=== PATIENT | male | born 1955 | race Caucasian/White ===

== ENCOUNTER 2018-11-03 12:57 | Inpatient (IN) | payer MEDICARE ==
[~2018-11-03] VITALS: Ht 175.3 cm; Wt 99.9 kg
[2018-11-03] VITALS: BP 81/58
--- OUTSIDE RECORDS SUMMARY | 2018-11-03 12:59 | XMS REPORT | Continuity of Care Document ---
Author Author [facility] Interface Address Unknown Phone Unavailable Problems Problem Status Onset Date Classification Date Reported Comments Source B18.2 - CHRONIC VIRAL HEPATITIS C Active 07/21/2018 [facility] [place] [id number] Active 02/02/2015 [place] Chronic pain syndrome<sup>2</sup> Active 02/01/2015 Problem 09/11/2018 Data migrated from [facility] on 02/14/15. [facility] [place] Tobacco dependence syndrome<sup>5</sup> Active 02/01/2015 Problem 09/11/2018 Data migrated from [facility] on 02/14/15. [facility] [place] CHRONIC PAIN Active 11/18/2014 [place] UNK Active 02/16/2014 [facility] Allergy to environmental factors Active Problem 09/11/2018 [facility] [place],[facility] Asthma Active Problem 09/11/2018 [facility] [place],[facility] Chronic hepatitis<sup>1</sup> Resolved Problem 09/11/2018 unknown which one BRENDAD [place], [place],[facility] Cigarette smoker Active Problem 09/11/2018 [facility] [place],[facility] Heartburn Active Problem 09/11/2018 BR[facility]AD [place],[facility] Muscle weakness Resolved Problem 09/11/2018 [facility] [place],[facility], [facility] Pain<sup>3</sup> Active Problem 09/11/2018 chronic left leg [facility] [place] Poor peripheral circulation Resolved Problem 09/11/2018 [facility]AD [place],[facility], [place] SOB - Shortness of breath<sup>4</sup> Resolved Problem 09/11/2018 with asthma been long time sense had episode >1980. OP[facility]ika [place] Travel abroad<sup>6</sup> Resolved Problem 09/11/2018 denies travel outside the [place] or contact with anyone showing Ebola Sx [facility] [place] SOB - Shortness of breath<sup>2</sup> Resolved Problem 03/10/2014 2with asthma been long time sense had episode >1979. [facility] Pain<sup>2</sup> Active Problem 02/09/2015 chronic left leg [facility] SOB - Shortness of breath<sup>3</sup> Resolved Problem 02/09/2015 with asthma been long time sense had episode >1980. [facility] Travel abroad<sup>4</sup> Resolved Problem 02/09/2015 denies travel outside the [place] or contact with anyone showing Ebola Sx [facility] CHRONIC PAIN SYNDROME Active [facility] Medications Medication Details Route Status Patient Instructions Ordering Provider Order Date Source Lactated Ringers Injection IV 1,000 mL 1,000 mL, Rate: 70 ml/hr, Infuse over: 14.3 hr, Route: IV, Dosing Weight 95.455 kg, Total Volume: 1,000, Start date: 02/06/15 6:00:00, Duration: 12 hr, Stop date: 02/06/15 17:59:00 Inactive 02/06/2015 [facility] Lidocaine Hydrochloride 10 MG/ML Injectable Solution [Xylocaine] 0.1 mL, Route: INTRADERM, Drug form: INJ, PRE OP, Dosing Weight 95.455, kg, Start date: 02/06/15 6:00:00, Duration: 30 day, Stop date: 03/08/15 5:59:00Notes: Preservative free. (Same as: Xylocaine MPF) Inactive 02/06/2015 [facility] ceFAZolin 2 gm, 50 mL, Route: IVPB, Drug form: INJ, PRE OP, Start date: 02/06/15 6:00:00, Duration: 12 hr, Stop date: 02/06/15 17:59:00 Inactive 02/06/2015 [facility] Lactated Ringers IV 1,000 mL 1,000 mL, Rate: 100 ml/hr, Infuse over: 10 hr, Route: IV, Dosing Weight 95.455 kg, Total Volume: 1,000, Start date: 02/06/15 5:17:00, Duration: 30 day, Stop date: 03/08/15 5:16:00 Inactive 02/06/2015 [facility] 12 HR Oxycodone Hydrochloride 30 MG Extended Release Tablet [Oxycontin] 30 mg=1 tab, PO, Q12H Active 02/03/2015 [facility] Oxycodone Hydrochloride 5 MG Oral Tablet 5 mg, Route: PO, Drug form: TAB, ONCE, Dosing Weight 90.909, kg, PRN as needed for pain, Start date: 03/08/14 10:30:00 Inactive 03/08/2014 [facility] Meperidine 12.5 mg, Route: IVP, Q30Min, Dosing Weight 90.909, kg, PRN Other -See Comment, For shivering, Start date: 03/08/14 9:55:00, Duration: 2 doses or times, Stop date: Limited # of times Inactive 03/08/2014 [facility] Flumazenil 0.2 mg, Route: IVP, PRN, Dosing Weight 90.909, kg, PRN Benzodiazepine Reversal, Initial dose, Start date: 03/08/14 9:55:00, Duration: 30 day, Stop date: 04/07/14 9:54:00 Inactive 03/08/2014 [facility] Naloxone 0.04 mg, Route: IVP, Q2MIN, Dosing Weight 90.909, kg, PRN Narcotic Reversal, Start date: 03/08/14 9:55:00, Duration: 8 doses or times, Stop date: Limited # of times Inactive 03/08/2014 [facility] Acetaminophen 325 MG / Hydrocodone Bitartrate 5 MG Oral Tablet [[place] 5/325] 1 tab, Route: PO, Drug Form: TAB, Dosing Weight 90.909, kg, Q4H, PRN Pain, Start date: 03/08/14 9:55:00, Duration: 30 day, Stop date: 04/07/14 9:54:00 Inactive 03/08/2014 [facility] Ondansetron 4 mg, Route: IVP, ONCE, Dosing Weight 90.909, kg, PRN Nausea & Vomiting, Start date: 03/08/14 9:55:00 Inactive 03/08/2014 [facility] Fentanyl 25 microgram, Route: IVP, Q5Min, Dosing Weight 90.909, kg, PRN Pain Score 4-6, Start date: 03/08/14 9:55:00, Duration: 4 doses or times, Stop date: Limited # of times Inactive 03/08/2014 [facility] Hydromorphone 0.5 mg, Route: IVP, Q5Min, Dosing Weight 90.909, kg, PRN Pain Score 7-10, Start date: 03/08/14 9:55:00, Duration: 4 doses or times, Stop date: Limited # of times Inactive 03/08/2014 [facility] Acetaminophen 1,000 mg, Route: IVPB, Drug form: INJ, ONCE, Dosing Weight 90.909, kg, PRN Pain Score 1-3, Start date: 03/08/14 9:55:00, Duration: 1 doses or times, Stop date: Limited # of times Inactive 03/08/2014 [facility] Clindamycin 900 mg, Route: IVPB, ONCE, Dosing Weight 90.909, kg, Start date: 03/08/14 8:10:00, Stop date: 03/08/14 8:10:00 Inactive 03/08/2014 [facility] Clindamycin 900 mg, 6 mL, Route: IVPB, ONCE, Dosing Weight 90.909, kg, Start date: 03/08/14 7:48:00, Stop date: 03/08/14 7:48:00Notes: (Same As: Cleocin) Inactive 03/08/2014 [facility] Calcium Chloride 0.0014 MEQ/ML / Potassium Chloride 0.004 MEQ/ML / Sodium Chloride 0.103 MEQ/ML / Sodium Lactate 0.028 MEQ/ML Injectable Solution 1,000 mL, Rate: 25 ml/hr, Infuse over: 40 hr, Route: IV, Dosing Weight 90.909 kg, Total Volume: 1,000, Start date: 03/08/14 6:28:00, Duration: 30 day, Stop date: 04/07/14 6:27:00 Inactive 03/08/2014 [facility] Oxymetazoline hydrochloride 0.5 MG/ML Nasal [place] [Afrin] 2 spray, NASAL, BID, # 15 ml, 0 Refill(s) Active 03/01/2014 [facility] 12 HR cetirizine hydrochloride 5 MG / Pseudoephedrine Hydrochloride 120 MG Extended Release Tablet [Zyrtec-D] 1 tab, PO, BID, # 60 tab, 0 Refill(s) Active 03/01/2014 [facility] MSIR 30 mg oral tablet 30 mg=1 tab, PO, Q4H, Pain, 0 Refill(s) Active 03/01/2014 [facility] morphine 15 mg/mL injectable solution 30 mg=2 mL, IM, Q4H, Pain, 0 Refill(s) Active 03/01/2014 [facility] Fentanyl 750 mcg/1ml, 0 Refill(s) Active 03/01/2014 [facility] Carisoprodol 350 MG Oral Tablet [Soma] 350 mg=1 tab, PO, QID, # 30 tab, 0 Refill(s) Active 03/01/2014 [facility] Allergies, Adverse Reactions, Alerts Substance Category Reaction Severity Reaction type Status Date Reported Comments Source sulfa drugs<sup>1</sup> Assertion Drug allergy Active 02/01/2015 Data migrated from [facility] on 02/13/15. Originally documented as SULFA. [facility] penicillins Assertion Drug allergy Active [facility] sulfa drugs Assertion Drug allergy Active [facility] Immunizations Immunization Date Given Site Status Last Updated Comments Source Results Order Name Results Value Reference Range Date Interpretation Comments Source Abd Liver Protocol w/wo IV contrast CT Abd Liver Protocol w/wo IV contrast CT Please note that the first sentence within the Impression should read as the following: "Cirrhotic changes seen of the liver" Exam: CT Scan of the abdomen with and without contrast Reason for Exam: - R93.2 Abnormal findings on diagnostic imaging of liver and biliary tract Comparison Exam: Ultrasound 08/04/2018 Technique: Multiple axial images were obtained of the abdomen. 5 mm slices were acquired before and after injection of 100 cc Omnipaque 300 IV. Oral contrast was given. Reformatted sagittal and coronal images were obtained. Total exam LSJ=1024 mGy-cm. This exam was performed according to our departmental dose- optimization program, which includes automated exposure control, adjustment of the MA and/or KV according to patient size and/or use of iterative reconstruction technique. Discussion: Visualized portions of the lung bases are clear. Small amount of free fluid seen abutting the liver. The contour is nodular, suggestive of cirrhotic changes. There is heterogeneous enhancement seen throughout much of the right lobe of the liver. However, there is no discrete enhancing mass that can be seen as described on recent ultrasound exam. At this time, ultrasound-guided biopsy should be considered. There is a persistent hypodense filling defect seen within the proximal right and left main portal veins, suggestive of partially occlusive thrombi (6, 35 and 6, 38). Mild gallbladder wall thickening. No biliary duct dilation. Spleen is slightly enlarged. Pancreas, stomach, and adrenal glands are unremarkable. Cyst seen within the right kidney measuring 2.3 cm. 3 mm calcified stone seen within the right kidney. No hydronephrosis or hydroureter. No dilated loops of bowel. No appreciable lymphadenopathy. No acute bony abnormalities appreciated. No suspicious osteoblastic or osteolytic lesions. No evidence seen for abdominal aortic aneurysm or dissection. Impression: 1. Chronic changes seen of the liver. There is heterogeneous enhancement seen throughout much of the right lobe of the liver. However, there is no discrete enhancing mass that can be seen as described on recent ultrasound exam. At this time, ultrasound-guided biopsy should be considered. 2. There is a persistent hypodense filling defect seen within the proximal right and left main portal veins, suggestive of partially occlusive thrombi. 09/08/2018 - - Read by: Dav Trammell MD Dictated Date/time: 09/09/18 13:24 Electronically Signed by: Dav Trammell MD 09/09/18 13:27 FINAL REPORT - - Read by: Dav Trammell MD Dictated Date/time: 09/08/18 17:15 Electronically Signed by: Dav Trammell MD 09/08/18 17:45 FINAL REPORT ANTONIETTA [facility] Liver US Liver US EXAM: Liver US HISTORY: - B18.2 Chronic viral hepatitis C COMPARISON: None TECHNIQUE: Grayscale, color doppler and limited spectral doppler images were obtained of the right upper quadrant of the abdomen with attention to the liver. FINDINGS: The liver is cirrhotic measuring about 16.7 cm with heterogeneous echotexture and a focal 4 to 5 cm heterogeneous right hepatic mass. Several small vessels are present in the hepatic hilum possibly indicating cavernous transformation of the portal vein. The hepatic artery and the hepatic veins are patent. The common bile duct measures 7 mm. Gallstones noted without wall thickening. Sonographic [place] sign was negative. The pancreas is grossly sonographically normal although parts were not seen well. Small simple right renal cysts measure up to 2.8 cm. The visualized abdominal aorta and IVC are normal. IMPRESSION: Cirrhosis and 4 to 5 cm right hepatic mass. CT or MRI hepatic protocol is recommended for further evaluation. 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 Small gallstones. 08/04/2018 - - Read by: Azra Begum MD Dictated Date/time: 08/04/18 12:10 Electronically Signed by: Azra Begum MD 08/04/18 12:14 FINAL REPORT [facility] [place] URINE AND STOOL UA Bacteria Few /HPF None Seen /HPF 02/06/2015 [place] URINE AND STOOL UA RBC 0-2 /HPF 0 - 2 02/06/2015 [place] URINE AND STOOL UA Mucus None Seen (02/06/15 10:49 AM) None Seen 02/06/2015 [place] URINE AND STOOL UA WBC 0-2 /HPF None Seen /HPF 02/06/2015 [facility] URINE AND STOOL UA Sq Epi Occasional /LPF Few /LPF 02/06/2015 [facility] URINE AND STOOL Micro? Performed (02/06/15 10:49 AM) 02/06/2015 [facility] URINE AND STOOL UA pH 7.0 5.0 - 8.0 02/06/2015 [facility] URINE AND STOOL UA Protein Trace *ABN* (02/06/15 10:49 AM) Negative 02/06/2015 [facility] URINE AND STOOL UA Spec Grav 1.015 <=1.030 02/06/2015 [facility] URINE AND STOOL UA Turbidity Clear (02/06/15 10:49 AM) Clear 02/06/2015 [facility] URINE AND STOOL UA Color Yellow *NA* (02/06/15 10:49 AM) Yellow 02/06/2015 [facility] URINE AND STOOL UA Urobilinogen 0.2 EU/dL 0.1 - 1.0 02/06/2015 [facility] URINE AND STOOL UA Leuk Est Negative (02/06/15 10:49 AM) Negative 02/06/2015 [facility] URINE AND STOOL UA Nitrite Negative (02/06/15 10:49 AM) Negative 02/06/2015 [facility] URINE AND STOOL UA Glucose Negative (02/06/15 10:49 AM) Negative 02/06/2015 [facility] URINE AND STOOL UA Ketones Negative *NA* (02/06/15 10:49 AM) Negative 02/06/2015 [facility] URINE AND STOOL UA Bili Negative *NA* (02/06/15 10:49 AM) Negative 02/06/2015 [facility] URINE AND STOOL UA Blood Trace *ABN* (02/06/15 10:49 AM) Negative 02/06/2015 [facility] BLOOD BANK RESULTS Antibody Scrn Negative (02/06/15 7:49 AM) 02/06/2015 [facility] BLOOD BANK RESULTS ABO/Rh AB POS 02/06/2015 Result Comment: 02/06/2015 09:09 [id number] Notified Kriss Deluna RN of corrected ABO/Rh type. 02/06/2015 09:09 LS [facility] CHEM PANEL eGFR 98 mL/min/1.73m2 02/06/2015 Result Comment: The eGFR is calculated using the CKD-EPI formula. In most young, healthy individuals the eGFR will be >90 mL/min/1.73m2. The eGFR declines with age. An eGFR of 60-89 may be normal in some populations, particularly the elderly, for whom the CKD-EPI formula has not been extensively validated. Use of the eGFR is not recommended in the following populations: Individuals with unstable creatinine concentrations, including patients and those with serious co-morbid conditions. Patients with extremes in muscle mass or diet. The data above are obtained from the National Kidney Disease Education Program (NKDEP) which additionally recommends that when the eGFR is used in patients with extremes of body mass index for purposes of drug dosing, the eGFR should be multiplied by the estimated BMI. [facility] CHEM PANEL Chloride Lvl 102 meq/L 95 - 109 02/06/2015 [facility] CHEM PANEL CO2 25 meq/L 24 - 32 02/06/2015 [facility] CHEM PANEL Calcium Lvl 9.6 mg/dL 8.5 - 10.5 02/06/2015 [facility] CHEM PANEL Sodium Lvl 136 meq/L 135 - 145 02/06/2015 [facility] CHEM PANEL Potassium Lvl 3.5 meq/L 3.5 - 5.1 02/06/2015 [facility] CHEM PANEL Creatinine Lvl 0.8 mg/dL 0.5 - 1.4 02/06/2015 [facility] CHEM PANEL BUN 5 mg/dL 7 - 22 02/06/2015 [facility] CHEM PANEL Glucose Lvl 133 mg/dL 70 - 99 02/06/2015 [facility] CHEM PANEL AGAP 12.5 meq/L 10.0 - 20.0 02/06/2015 [facility] HEMATOLOGY Lymphocytes # 1.6 K/CMM 1.0 - 5.5 02/06/2015 [facility] HEMATOLOGY Monocytes # 0.6 K/CMM 0.0 - 0.8 02/06/2015 [facility] HEMATOLOGY Basophils # 0.1 K/CMM 0.0 - 0.2 02/06/2015 [facility] HEMATOLOGY Lymphocytes 20.9 % 20.0 - 40.0 02/06/2015 [facility] HEMATOLOGY Segs 70.5 % 45.0 - 75.0 02/06/2015 [facility] HEMATOLOGY Monocytes 7.6 % 2.0 - 12.0 02/06/2015 [facility] HEMATOLOGY Eosinophils 0.3 % 0.0 - 4.0 02/06/2015 [facility] HEMATOLOGY Basophils 0.7 % 0.0 - 1.0 02/06/2015 [facility] HEMATOLOGY Segs-Bands # 5.5 K/CMM 1.5 - 8.1 02/06/2015 [facility] HEMATOLOGY WBC 7.8 K/CMM 3.7 - 10.4 02/06/2015 [facility] HEMATOLOGY RBC 5.24 M/CMM 4.70 - 6.10 02/06/2015 [facility] Hgb 16.3 g/dL 14.0 - 18.0 02/06/2015 [facility] HEMATOLOGY Hct 47.6 % 42.0 - 54.0 02/06/2015 [facility] MCHC 34.2 g/dL 32.0 - 36.0 02/06/2015 [facility] MCH 31.0 pg 27.0 - 31.0 02/06/2015 [facility] HEMATOLOGY Platelet 255 K/CMM 133 - 450 02/06/2015 [facility] HEMATOLOGY RDW 13.2 % 11.5 - 14.5 02/06/2015 [facility] HEMATOLOGY MCV 90.8 fL 80.0 - 94.0 02/06/2015 [facility] MPV 8.1 fL 7.4 - 10.4 02/06/2015 [facility] HEMATOLOGY INR 0.96 0.85 - 1.17 02/06/2015 [facility] HEMATOLOGY PTT 29.2 s 22.9 - 35.8 02/06/2015 [facility] PT 12.8 s 12.0 - 14.7 02/06/2015 [facility] CHEM PANEL AST 98 unit/L 0 - 37 03/01/2014 [facility] CHEM PANEL ALT 104 unit/L 0 - 65 03/01/2014 [facility] CHEM PANEL Total Protein 8.2 g/dL 6.4 - 8.4 03/01/2014 [facility] CHEM PANEL Albumin Lvl 3.6 g/dL 3.5 - 5.0 03/01/2014 [facility] CHEM PANEL Bili Direct 0.2 mg/dL 0.0 - 0.3 03/01/2014 [facility] CHEM PANEL Alk Phos 70 unit/L 39 - 136 03/01/2014 [facility] CHEM PANEL Bili Total 0.4 mg/dL 0.2 - 1.3 03/01/2014 [facility] CHEM PANEL A/G Ratio 0.8 0.7 - 1.6 03/01/2014 [facility] CHEM PANEL Globulin 4.6 g/dL 2.0 - 4.0 03/01/2014 [facility] CHEM PANEL Bili Indirect 0.2 mg/dL 0.0 - 1.0 03/01/2014 [facility] ELECTROLYTES Sodium Lvl 136 meq/L 135 - 145 03/01/2014 [facility] ELECTROLYTES Creatinine Lvl 0.7 mg/dL 0.5 - 1.4 03/01/2014 [facility] ELECTROLYTES eGFR 104 mL/min/1.73m2 03/01/2014 1Result Comment: The eGFR is calculated using the CKD-EPI formula. In most young, healthy individuals the eGFR will be >90 mL/min/1.73m2. The eGFR declines with age. An eGFR of 60-89 may be normal in some populations, particularly the elderly, for whom the CKD-EPI formula has not been extensively validated. Use of the eGFR is not recommended in the following populations: Individuals with unstable creatinine concentrations, including patients and those with serious co-morbid conditions. Patients with extremes in muscle mass or diet. The data above are obtained from the National Kidney Disease Education Program (NKDEP) which additionally recommends that when the eGFR is used in patients with extremes of body mass index for purposes of drug dosing, the eGFR should be multiplied by the estimated BMI. [facility] ELECTROLYTES Potassium Lvl 4.2 meq/L 3.5 - 5.1 03/01/2014 [facility] ELECTROLYTES Chloride Lvl 102 meq/L 95 - 109 03/01/2014 [facility] ELECTROLYTES CO2 27 meq/L 24 - 32 03/01/2014 [facility] ELECTROLYTES Calcium Lvl 9.6 mg/dL 8.5 - 10.5 03/01/2014 [facility] ELECTROLYTES BUN 10 mg/dL 7 - 22 03/01/2014 [facility] ELECTROLYTES Glucose Lvl 109 mg/dL 70 - 99 03/01/2014 2Interpretive Data: Adult reference range values reflect the clinical guidelines of the [place] [employer]. [facility] ELECTROLYTES AGAP 11.2 meq/L 10.0 - 20.0 03/01/2014 [facility] HEMATOLOGY WBC 7.7 K/CMM 3.7 - 10.4 03/01/2014 [facility] HEMATOLOGY PT 11.9 s 12.0 - 14.7 03/01/2014 [facility] HEMATOLOGY INR 0.88 0.85 - 1.17 03/01/2014 3Interpretive Data: RECOMMENDED RANGES FOR PROTIME INR: 2.0-3.0 for most medical and surgical thromboembolic states. 2.5-3.5 for artificial heart valves and recurrent embolism. INR SHOULD BE USED ONLY FOR PATIENTS ON STABLE ANTICOAGULANT THERAPY. [facility] HEMATOLOGY PTT 26.4 s 22.9 - 35.8 03/01/2014 4Interpretive Data: Heparin Therapeutic Range: 57 - 92 Seconds [facility] HEMATOLOGY Platelet 220 K/CMM 133 - 450 03/01/2014 [facility] Vital Signs Vital Sign Value Date Comments Source Systolic (mm Hg) 142 02/06/2015 [facility] Diastolic (mm Hg) 83 02/06/2015 [facility] Respitory Rate 16 02/06/2015 [facility] Heart Rate 64 02/06/2015 [facility] Heart Rate 63 02/06/2015 [facility] Systolic (mm Hg) 120 02/06/2015 [facility] Diastolic (mm Hg) 74 02/06/2015 [facility] Respitory Rate 19 02/06/2015 [facility] Systolic (mm Hg) 120 02/06/2015 [facility] Diastolic (mm Hg) 74 02/06/2015 [facility] Respitory Rate 13 02/06/2015 [facility] Heart Rate 98 02/06/2015 [facility] Height 177.8 cm 02/03/2015 [facility] BMI Calculated 30.2 02/03/2015 [facility] Weight 95.455 02/03/2015 [facility] Diastolic (mm Hg) 76 03/08/2014 [facility] Systolic (mm Hg) 146 03/08/2014 [facility] Diastolic (mm Hg) 97 03/08/2014 [facility] Systolic (mm Hg) 145 03/08/2014 [facility] Diastolic (mm Hg) 81 03/08/2014 [facility] Systolic (mm Hg) 147 03/08/2014 [facility] Respitory Rate 17 03/08/2014 [facility] Respitory Rate 14 03/08/2014 [facility] Respitory Rate 15 03/08/2014 [facility] Temperature Oral (F) 98.6 F 03/01/2014 [facility] Heart Rate 76 03/01/2014 [facility] BMI Calculated 28.76 03/01/2014 [facility] Weight 90.909 03/01/2014 [facility] Height 177.8 cm 03/01/2014 [facility] Encounters Location Location Details Encounter Type Encounter Number Reason For Visit Attending Provider ADM Date DC Date Status Source [facility] OBS Day Surgery [id number] Esequiel Veronica 03/08/2014 03/08/2014 [facility] OBS Day Surgery [id number] Luis Schwartz Jr 02/06/2015 02/06/2015 [facility] Outpatient [id number] LUIS SCHWARTZ JR 04/04/2015 [facility] [id number] Olimpia Hazel 08/04/2018 08/05/2018 [facility] - [facility] [id number] Olga Nuno 09/08/2018 09/09/2018 [facility] [place] Procedures Procedure Code Date Perfomer Comments Source Arthroscopy of knee [id number] [facility] [place] Excision of lipoma [id number] [facility] Insertion of infusion pump [id number] [facility] Miscellaneous operations [id number] [facility] [place] ORIF - Open reduction and internal fixation of fracture [id number] [facility] ORIF - Open reduction and internal fixation of fracture<sup>1</sup> [id number] Enrique in place [facility] Arthroscopy of knee [id number] [facility] Excision of lipoma [id number] [facility] Insertion of infusion pump [id number] [facility] ORIF - Open reduction and internal fixation of fracture [id number] [facility] [facility] Arthroscopy of knee [id number] [facility] Excision of lipoma [id number] [facility] Insertion of infusion pump [id number] [facility] Miscellaneous operations [id number] [facility] ORIF - Open reduction and internal fixation of fracture<sup>1</sup> [id number] Enrique in place [facility] ORIF - Open reduction and internal fixation of fracture [id number] [facility]
--- OUTSIDE RECORDS SUMMARY | 2018-11-03 12:59 | XMS REPORT | Summary of Care ---
Author Author [facility] [place] Organization [facility] Out[facility] Address Unknown Phone Unavailable Encounter MAYRA Chery(FIN) [id number] Date(s): 09/08/18 - 09/08/18 [facility] [address] [place] [address] 7 [phone] Discharge Disposition: Home or Self Care Attending Physician: Olga Nuno MD Referring Physician: Olga Nuno MD Vital Signs No data available for this section Problem List Condition Effective Dates Status Health Status Informant Allergy to Active environmental factors(Confirmed) Asthma(Confirmed) Active Chronic Resolved hepatitis(Confirmed) 1 Chronic pain 02/01/15 Active syndrome2 Cigarette Active smoker(Confirmed) Heartburn(Confirmed) Active Muscle Resolved weakness(Confirmed) Pain(Confirmed)3 Active Poor peripheral Resolved circulation(Confirme d) SOB - Shortness of Resolved breath(Confirmed)4 Tobacco dependence 02/01/15 Active syndrome5 Travel Resolved abroad(Confirmed)6 1unknown which one 2Data migrated from Viyet on 02/14/15. 3chronic left leg 4with asthma been long time sense had episode >1979. 5Data migrated from [employer] on 02/14/15. 6denies travel outside the [place] or contact with anyone showing Ebola Sx Allergies, Adverse Reactions, Alerts Substance Reaction Severity Status sulfa drugs1 Active 1Data migrated from [employer] on 02/13/15. Originally documented as SULFA. Medications No data available for this section Results No data available for this section Immunizations No data available for this section Procedures Procedure Date Related Diagnosis Body Site Status Arthroscopy of knee Completed Arthroscopy of knee Completed Excision of lipoma Completed Insertion of infusion pump Completed Miscellaneous operations Completed Miscellaneous operations Completed ORIF - Open reduction and internal fixation Completed of fracture ORIF - Open reduction and internal fixation Completed of fracture1 1Rod in place Social History Social History Type Response Substance Abuse Use: Past. Type: Marijuana. Recreational Drug Route: Inhaled.1 Exercise Exercise duration: 0. Alcohol Past, Previous treatment: None. Smoking Status Current every day smoker; Type: Cigarettes; Lives with someone who smokes; Cigarette Smoking Last 365 Days No; Reg Smoking Cessation Counseling No; Tobacco use per day: 35; Number of years: 39; entered on: 02/06/15 1years ago- Assessment and Plan No data available for this section
--- OUTSIDE RECORDS SUMMARY | 2018-11-03 12:59 | XMS REPORT | Summary of Care ---
Author Author [facility] [place] Organization [facility] [place] Address Unknown Phone Unavailable Encounter MAYRA Chery(FIN) [id number] Date(s): 08/04/18 - 08/04/18 [facility] Outpatient Imaging [facility] [address] [place] [phone] Discharge Disposition: Home or Self Care Attending Physician: Olga Nuno MD Referring Physician: Olimpia Hazel Vital Signs No data available for this [...] abroad(Confirmed)6 1unknown which one 2Data migrated from [email or web address] on 02/14/15. 3chronic left leg 4with asthma been long time sense had episode >1979. 5Data migrated from [employer] on 02/14/15. 6denies travel outside the [place] or contact with anyone showing Ebola Sx Allergies, Adverse Reactions, Alerts Substance Reaction Severity Status sulfa drugs1 Active 1Data migrated from [employer] on 02/13/15. Originally documented as SULFA. Medications [...]
--- OUTSIDE RECORDS SUMMARY | 2018-11-03 13:00 | XMS REPORT | Summary of Care ---
Author Organization Unknown Address Unknown Phone Unavailable Encounter HQ Miri(OSMAR) [id number] Date(s): 03/08/14 - 03/08/14 [facility] [address] [place] [address] - [facility] Discharge Disposition: Home Physician Attending: Esequiel Martin MD Physician_Referring: Esequiel Martin MD Reason for Visit UNK Vital Signs 1 2 3 Most recent to oldest [Reference Range]: 177.8 cm (03/01/14 2:15 PM) Height 98.6 DegF (03/01/14 2:15 PM) Temperature Oral [96.4-99.1 DegF] 146 mmHg *HI* (03/08/14 11:15 AM) 145 mmHg *HI* (03/08/14 11:00 AM) 147 mmHg *HI* (03/08/14 10:45 AM) Systolic Blood Pressure [90-140 mmHg] 76 mmHg (03/08/14 11:15 AM) 97 mmHg *HI* (03/08/14 11:00 AM) 81 mmHg (03/08/14 10:45 AM) Diastolic Blood Pressure [60-90 mmHg] 17 BRMIN (03/08/14 10:30 AM) 14 BRMIN (03/08/14 10:15 AM) 15 BRMIN (03/08/14 10:08 AM) Respiratory Rate [14-20 BRMIN] 76 bpm (03/01/14 2:15 PM) Peripheral Pulse Rate [60-100 bpm] 90.909 kg (03/01/14 2:15 PM) Weight 28.76 m2 (03/01/14 2:15 PM) Body Mass Index Problem List Condition Effective Dates Status Health Status Informant Asthma(Confirmed) Active Chronic Resolved hepatitis(Confirmed) 1 Cigarette Active smoker(Confirmed) Heartburn(Confirmed) Active Muscle Resolved weakness(Confirmed) Poor peripheral Resolved circulation(Confirme d) SOB - Shortness of Resolved breath(Confirmed)2 1unknown which one 2with asthma been long time sense had episode >1979. Allergies, Adverse Reactions, Alerts Substance Reaction Severity Status penicillins Active Medications acetaminophen 1,000 mg, Route: IVPB, Drug form: INJ, ONCE, Dosing Weight 90.909, kg, PRN Pain Score 1-3, Start date: 03/08/14 9:55:00, Duration: 1 doses or times, Stop date: Limited # of times Start Date: 03/08/14 Stop Date: 03/08/14 Status: Discontinued Afrin 0.05% nasal spray 2 spray, NASAL, BID, # 15 ml, 0 Refill(s) Start Date: 03/01/14 Status: Ordered clindamycin 900 mg, Route: IVPB, ONCE, Dosing Weight 90.909, kg, Start date: 03/08/14 8:10:0 0, Stop date: 03/08/14 8:10:00 Start Date: 03/08/14 Stop Date: 03/08/14 Status: Completed clindamycin + Sodium Chloride 0.9% IV 100 mL 900 mg, 6 mL, Route: IVPB, ONCE, Dosing Weight 90.909, kg, Start date: 03/08/14 7:48:00, Stop date: 03/08/14 7:48:00 Notes: (Same As: Cleocin) Start Date: 03/08/14 Stop Date: 03/08/14 Status: Ordered fentaNYL 25 microgram, Route: IVP, Q5Min, Dosing Weight 90.909, kg, PRN Pain Score 4-6, S tart date: 03/08/14 9:55:00, Duration: 4 doses or times, Stop date: Limited # of times Start Date: 03/08/14 Stop Date: 03/08/14 Status: Discontinued fentaNYL 750 mcg/1ml, 0 Refill(s) Start Date: 03/01/14 Status: Ordered flumazenil 0.2 mg, Route: IVP, PRN, Dosing Weight 90.909, kg, PRN Benzodiazepine Reversal, Initial dose, Start date: 03/08/14 9:55:00, Duration: 30 day, Stop date: 4 9:54:00 Start Date: 03/08/14 Stop Date: 03/08/14 Status: Discontinued hydromorphone 0.5 mg, Route: IVP, Q5Min, Dosing Weight 90.909, kg, PRN Pain Score 7-10, Start date: 03/08/14 9:55:00, Duration: 4 doses or times, Stop date: Limited # of time s Start Date: 03/08/14 Stop Date: 03/08/14 Status: Discontinued Lactated Ringers Injection IV 1,000 mL 1,000 mL, Rate: 25 ml/hr, Infuse over: 40 hr, Route: IV, Dosing Weight 90.909 kg , Total Volume: 1,000, Start date: 03/08/14 6:28:00, Duration: 30 day, Stop date : 04/07/14 6:27:00 Start Date: 03/08/14 Stop Date: 03/08/14 Status: Discontinued meperidine 12.5 mg, Route: IVP, Q30Min, Dosing Weight 90.909, kg, PRN Other -See Comment, F or shivering, Start date: 03/08/14 9:55:00, Duration: 2 doses or times, Stop mauricio e: Limited # of times Start Date: 03/08/14 Stop Date: 03/08/14 Status: Discontinued morphine 15 mg/mL injectable solution 30 mg=2 mL, IM, Q4H, Pain, 0 Refill(s) Start Date: 03/01/14 Status: Ordered MSIR 30 mg oral tablet 30 mg=1 tab, PO, Q4H, Pain, 0 Refill(s) Start Date: 03/01/14 Status: Ordered naloxone 0.04 mg, Route: IVP, Q2MIN, Dosing Weight 90.909, kg, PRN Narcotic Reversal, Sta rt date: 03/08/14 9:55:00, Duration: 8 doses or times, Stop date: Limited # of t imes Start Date: 03/08/14 Stop Date: 03/08/14 Status: Discontinued [place] 5/325 oral tablet 1 tab, Route: PO, Drug Form: TAB, Dosing Weight 90.909, kg, Q4H, PRN Pain, Start date: 03/08/14 9:55:00, Duration: 30 day, Stop date: 04/07/14 9:54:00 Start Date: 03/08/14 Stop Date: 03/08/14 Status: Discontinued ondansetron 4 mg, Route: IVP, ONCE, Dosing Weight 90.909, kg, PRN Nausea & Vomiting, Start date: 03/08/14 9:55:00 Start Date: 03/08/14 Stop Date: 03/08/14 Status: Discontinued oxyCODONE 5 mg immediate release 5 mg, Route: PO, Drug form: TAB, ONCE, Dosing Weight 90.909, kg, PRN as needed f or pain, Start date: 03/08/14 10:30:00 Start Date: 03/08/14 Stop Date: 03/08/14 Status: Completed Soma 350 mg oral tablet 350 mg=1 tab, PO, QID, # 30 tab, 0 Refill(s) Start Date: 03/01/14 Stop Date: 03/11/14 Status: Ordered ZyrTEC-D oral tablet, extended release 1 tab, PO, BID, # 60 tab, 0 Refill(s) Start Date: 03/01/14 Status: Ordered Results ELECTROLYTES Most recent to 1 oldest [Reference Range]: Sodium Lvl [135-145 136 mEq/L mEq/L] (03/01/14 2:30 PM) Potassium Lvl 4.2 mEq/L [3.5-5.1 mEq/L] (03/01/14 2:30 PM) Chloride Lvl [95-109 102 mEq/L mEq/L] (03/01/14 2:30 PM) CO2 [24-32 mEq/L] 27 mEq/L (03/01/14 2:30 PM) AGAP [10.0-20.0 11.2 mEq/L mEq/L] (03/01/14 2:30 PM) CHEM PANEL Most recent to 1 oldest [Reference Range]: Creatinine Lvl 0.7 mg/dL [0.5-1.4 mg/dL] (03/01/14 2:30 PM) eGFR 104 mL/min/1.73m2 1 *NA* (03/01/14 2:30 PM) BUN [7-22 mg/dL] 10 mg/dL (03/01/14 2:30 PM) Glucose Lvl [70-99 109 mg/dL 2 mg/dL] *HI* (03/01/14 2:30 PM) Total Protein 8.2 g/dL [6.4-8.4 g/dL] (03/01/14 2:30 PM) Albumin Lvl [3.5-5.0 3.6 g/dL g/dL] (03/01/14 2:30 PM) Globulin [2.0-4.0 4.6 g/dL g/dL] *HI* (03/01/14 2:30 PM) A/G Ratio [0.7-1.6] 0.8 (03/01/14 2:30 PM) Calcium Lvl 9.6 mg/dL [8.5-10.5 mg/dL] (03/01/14 2:30 PM) ALT [0-65 unit/L] 104 unit/L *HI* (03/01/14 2:30 PM) AST [0-37 unit/L] 98 unit/L *HI* (03/01/14 2:30 PM) Alk Phos [39-136 70 unit/L unit/L] (03/01/14 2:30 PM) Bili Total [0.2-1.3 0.4 mg/dL mg/dL] (03/01/14 2:30 PM) Bili Direct [0.0-0.3 0.2 mg/dL mg/dL] (03/01/14 2:30 PM) Bili Indirect 0.2 mg/dL [0.0-1.0 mg/dL] (03/01/14 2:30 PM) 1Result Comment: The eGFR is calculated using [...] from the National Kidney Disease Education Program ( NKDEP) which additionally recommends that when the eGFR is used in patients with extremes of body mass index for purposes of drug dosing, the eGFR should be mul tiplied by the estimated BMI. 2Interpretive Data: Adult reference range values reflect the clinical guidelines of the [place] [employer]. HEMATOLOGY Most recent to 1 oldest [Reference Range]: WBC [3.7-10.4 K/CMM] 7.7 K/CMM (03/01/14 2:30 PM) Platelet [133-450 220 K/CMM K/CMM] (03/01/14 2:30 PM) PT [12.0-14.7 11.9 seconds seconds] *LOW* (03/01/14 2:30 PM) INR [0.85-1.17] 0.88 3 (03/01/14 2:30 PM) PTT [22.9-35.8 26.4 seconds 4 seconds] (03/01/14 2:30 PM) 3Interpretive Data: RECOMMENDED RANGES FOR PROTIME INR: 2.0-3.0 for most medical and surgical thromboembolic states. 2.5-3.5 for artificial heart valves and recurrent embolism. INR SHOULD BE USED ONLY FOR PATIENTS ON STABLE ANTICOAGULANT THERAPY. 4Interpretive Data: Heparin Therapeutic Range: 57 - 92 Seconds Medications Administered During Your Visit No data available for this section Immunizations No data available for this section Procedures Procedure Type Body Site Date of Procedure Related Diagnosis Arthroscopy of knee Excision of lipoma Insertion of infusion pump ORIF - Open reduction and internal fixation of fracture ORIF - Open reduction and internal fixation of fracture Social History Social History Type Response Alcohol Previous treatment: None Smoking Status Current every day smoker, Exposure to Tobacco Smoke None, Cigarette Smoking Last 365 Days No, Reg Smoking Cessation Counseling No Assessment and Plan Extracted from: Title: Intrathecal pump replacement Author: Esequiel Martin MD Date: 03/08/14 and catheter revision OP note - IT pump revision The procedure was performed at [facility] , The H&P, done within the past 30 days, was reviewed with patient prior to the procedure and patient denies significant changes. PATIENT NAME: Lorenzo Gupta DATE OF : 55 REFERRAL SOURCE: Outside physician DATE OF PROCEDURE: 03/08/14 SURGEON: Esequiel Martin M.D. PRE-PROCEDURE DIAGNOSIS: Intrathecal pump end of battery life POST-PROCEDURE DIAGNOSIS: Intrathecal pump end of battery life PROCEDURES: IMPLTJ REVJ/RPSG ITHCL/EDRL CATH MANAGER EMERGENCY W/O BARAJAS : 80094 IMPLTJ/RPLCMT ITHCL/EDRL DRUG NFS PRGRBL PUMP : 35352 Fluoroscopic guidance for the above procedure [id number] ANESTHESIA: general anesthesia ESTIMATED BLOOD LOSS: Minimal IV FLUIDS: Per anesthetic/nursing record COMPLICATIONS: None PROCEDURE IN DETAIL: The patient was identified in the procedure room. Risks, benefits, and alternatives were discussed, all questions were answered, and the patient desired to proceed. Consent was noted in the chart and a time out was performed. Then the patient was made comfortable in the supine position on the procedure table. Pressure points were checked and padded awake. Vital signs were stable.Anesthesia was provided as indicated above. An antiseptic solution was used over the area followed by sterile draping. Fluoroscopy was used to survey the thoracolumbar spine. The planned incision sites were injected with bupivacaine 0.25% with epinephrine. Then an incision was made over the pump pocket on the left flank with a 10 blade. Hemostasis was achieved using a [place]. The pump and catheter were dissected out from the pocket.The catheter was then disconnected from the pump and pulled through to the midline incision.At this point, there were crystalline structures noted around the pump pocket. On dissection, the pump was noted to be disconnected from the cather. Some CSF were aspirated with a 25 guage needle but appears to be slow. The catheter needed to be revised, removing approxiamtely 2 cm, to the appropriate length and was connected to the Medtronic Synchromed II pump using a sutureless connector. The pocket and back incision were then irrigated with a Bacitracin solution and then closed with 2-0 Vicryl interrupted stitches and then a 3-0 Monocryl continuous subcuticular stitch for the skin. Dermabond was used over the incisions and covered by sterile gauze and tape after dry. The patient was transferred to a stretcher and taken to the recovery area in stable condition. The patient tolerated the procedure well, suffered no apparent adverse events, and was discharged to the care of a responsible adult when criteria met. Patient and family member were instructed to monitor signs of sedation or respiratory difficulties over the course of next three days. He verbalized understanding of the care plan.
--- OUTSIDE RECORDS SUMMARY | 2018-11-03 13:00 | XMS REPORT | Summary of Care ---
Author Author [facility] Organization [facility] Address Unknown Phone Unavailable Encounter MAYRA Chery(OSMAR) [id number] Date(s): 02/06/15 - 02/06/15 [facility] [address] [place] [address]- Discharge Disposition: Home Attending Physician: Luis Martinez MD Vital Signs 1 2 3 Most recent to oldest [Reference Range]: 177.8 cm (02/03/15 5:48 PM) Height 1 2 3 Most recent to oldest [Reference Range]: 142/83 mmHg *HI* (02/06/15 2:50 PM) 120/74 mmHg (02/06/15 2:05 PM) 120/74 mmHg (02/06/15 1:50 PM) Blood Pressure [90-140/60-90 mmHg] 1 2 3 Most recent to oldest [Reference Range]: 16 BRMIN (02/06/15 2:50 PM) 19 BRMIN (02/06/15 2:05 PM) 13 BRMIN *LOW* (02/06/15 1:50 PM) Respiratory Rate [14-20 BRMIN] 1 2 3 Most recent to oldest [Reference Range]: 64 bpm (02/06/15 2:50 PM) 63 bpm (02/06/15 2:05 PM) 98 bpm (02/06/15 7:33 AM) Peripheral Pulse Rate [60-100 bpm] 1 2 3 Most recent to oldest [Reference Range]: 95.455 kg (02/03/15 5:48 PM) Weight 1 2 3 Most recent to oldest [Reference Range]: 30.2 m2 (02/03/15 5:48 PM) Body Mass Index Problem List Condition Effective Dates Status Health Status Informant Allergy to Active environmental factors(Confirmed) Asthma(Confirmed) Active Chronic Resolved hepatitis(Confirmed) 1 Cigarette Active smoker(Confirmed) Heartburn(Confirmed) Active Muscle Resolved weakness(Confirmed) Pain(Confirmed)2 Active Poor peripheral Resolved circulation(Confirme d) SOB - Shortness of Resolved breath(Confirmed)3 Travel Resolved abroad(Confirmed)4 1unknown which one 2chronic left leg 3with asthma been long time sense had episode >1979. 4denies travel outside the [place] or contact with anyone showing Ebola Sx Allergies, Adverse Reactions, Alerts Substance Reaction Severity Status sulfa drugs Active Medications ceFAZolin 2 gm, 50 mL, Route: IVPB, Drug form: INJ, PRE OP, Start date: 02/06/15 6:00:00, Duration: 12 hr, Stop date: 02/06/15 17:59:00 Start Date: 02/06/15 Stop Date: 02/06/15 Status: Completed Lactated Ringers Injection IV 1,000 mL 1,000 mL, Rate: 70 ml/hr, Infuse over: 14.3 hr, Route: IV, Dosing Weight 95.455 kg, Total Volume: 1,000, Start date: 02/06/15 6:00:00, Duration: 12 hr, Stop mauricio e: 02/06/15 17:59:00 Start Date: 02/06/15 Stop Date: 02/06/15 Status: Completed Lactated Ringers IV 1,000 mL 1,000 mL, Rate: 100 ml/hr, Infuse over: 10 hr, Route: IV, Dosing Weight 95.455 k g, Total Volume: 1,000, Start date: 02/06/15 5:17:00, Duration: 30 day, Stop mauricio e: 03/08/15 5:16:00 Start Date: 02/06/15 Stop Date: 02/06/15 Status: Discontinued oxyCONTIN 30 mg oral tablet, extended release 30 mg=1 tab, PO, Q12H Start Date: 02/03/15 Status: Ordered Xylocaine-MPF 1% preservative-free injectable solution 0.1 mL, Route: INTRADERM, Drug form: INJ, PRE OP, Dosing Weight 95.455, kg, Star t date: 02/06/15 6:00:00, Duration: 30 day, Stop date: 03/08/15 5:59:00 Notes: Preservative free. (Same as: Xylocaine MPF) Start Date: 02/06/15 Stop Date: 02/06/15 Status: Discontinued Results BLOOD BANK RESULTS Most recent to 1 oldest [Reference Range]: ABO/Rh AB POS 1 *Unknown* (02/06/15 7:49 AM) Antibody Scrn Negative (02/06/15 7:49 AM) 1Result Comment: 02/06/2015 09:09 [id number] Notified Kriss Deluna RN of corrected ABO/Rh type. 02/06/2015 09:09 LS ELECTROLYTES Most recent to 1 oldest [Reference Range]: Sodium Lvl [135-145 136 mEq/L mEq/L] (02/06/15 7:49 AM) Potassium Lvl 3.5 mEq/L [3.5-5.1 mEq/L] (02/06/15 7:49 AM) Chloride Lvl [95-109 102 mEq/L mEq/L] (02/06/15 7:49 AM) CO2 [24-32 mEq/L] 25 mEq/L (02/06/15 7:49 AM) AGAP [10.0-20.0 12.5 mEq/L mEq/L] (02/06/15 7:49 AM) CHEM PANEL Most recent to 1 oldest [Reference Range]: Creatinine Lvl 0.8 mg/dL [0.5-1.4 mg/dL] (02/06/15 7:49 AM) eGFR 98 mL/min/1.73m2 2 *NA* (02/06/15 7:49 AM) BUN [7-22 mg/dL] 5 mg/dL *LOW* (02/06/15 7:49 AM) Glucose Lvl [70-99 133 mg/dL mg/dL] *HI* (02/06/15 7:49 AM) Calcium Lvl 9.6 mg/dL [8.5-10.5 mg/dL] (02/06/15 7:49 AM) 2Result Comment: The eGFR is calculated using the [...] be mul tiplied by the estimated BMI. URINE AND STOOL Most recent to 1 oldest [Reference Range]: UA Turbidity [Clear] Clear (02/06/15 10:49 AM) UA Color [Yellow] Yellow *NA* (02/06/15 10:49 AM) UA pH [5.0-8.0] 7.0 (02/06/15 10:49 AM) UA Spec Grav 1.015 [<=1.030] (02/06/15 10:49 AM) UA Glucose Negative [Negative] (02/06/15 10:49 AM) UA Blood [Negative] Trace *ABN* (02/06/15 10:49 AM) UA Ketones Negative [Negative] *NA* (02/06/15 10:49 AM) UA Protein Trace [Negative] *ABN* (02/06/15 10:49 AM) UA Urobilinogen 0.2 EU/dL [0.1-1.0 EU/dL] (02/06/15 10:49 AM) UA Bili [Negative] Negative *NA* (02/06/15 10:49 AM) UA Leuk Est Negative [Negative] (02/06/15 10:49 AM) UA Nitrite Negative [Negative] (02/06/15 10:49 AM) UA WBC [None Seen 0-2 /HPF /HPF] (02/06/15 10:49 AM) UA RBC [0-2 /HPF] 0-2 /HPF (02/06/15 10:49 AM) UA Bacteria [None Few /HPF Seen /HPF] (02/06/15 10:49 AM) UA Sq Epi [Few /LPF] Occasional /LPF (02/06/15 10:49 AM) UA Mucus [None Seen] None Seen (02/06/15 10:49 AM) Micro? Performed (02/06/15 10:49 AM) HEMATOLOGY Most recent to 1 oldest [Reference Range]: WBC [3.7-10.4 K/CMM] 7.8 K/CMM (02/06/15 7:49 AM) RBC [4.70-6.10 5.24 M/CMM M/CMM] (02/06/15 7:49 AM) Hgb [14.0-18.0 g/dL] 16.3 g/dL (02/06/15 7:49 AM) Hct [42.0-54.0 %] 47.6 % (02/06/15 7:49 AM) MCV [80.0-94.0 fL] 90.8 fL (02/06/15 7:49 AM) MCH [27.0-31.0 pg] 31.0 pg (02/06/15 7:49 AM) MCHC [32.0-36.0 34.2 g/dL g/dL] (02/06/15 7:49 AM) RDW [11.5-14.5 %] 13.2 % (02/06/15 7:49 AM) Platelet [133-450 255 K/CMM K/CMM] (02/06/15 7:49 AM) MPV [7.4-10.4 fL] 8.1 fL (02/06/15 7:49 AM) Segs [45.0-75.0 %] 70.5 % (02/06/15 7:49 AM) Lymphocytes 20.9 % [20.0-40.0 %] (02/06/15 7:49 AM) Monocytes [2.0-12.0 7.6 % %] (02/06/15 7:49 AM) Eosinophils [0.0-4.0 0.3 % %] (02/06/15 7:49 AM) Basophils [0.0-1.0 0.7 % %] (02/06/15 7:49 AM) Segs-Bands # 5.5 K/CMM [1.5-8.1 K/CMM] (02/06/15 7:49 AM) Lymphocytes # 1.6 K/CMM [1.0-5.5 K/CMM] (02/06/15 7:49 AM) Monocytes # [0.0-0.8 0.6 K/CMM K/CMM] (8/17/15 7:49 AM) Basophils # [0.0-0.2 0.1 K/CMM K/CMM] (02/06/15 7:49 AM) PT [12.0-14.7 12.8 seconds seconds] (02/06/15 7:49 AM) INR [0.85-1.17] 0.96 (02/06/15 7:49 AM) PTT [22.9-35.8 29.2 seconds seconds] (02/06/15 7:49 AM) Immunizations No data available for this section Procedures Procedure Date Related Diagnosis Body Site Arthroscopy of knee Arthroscopy of knee Excision of lipoma Insertion of infusion pump Miscellaneous operations Miscellaneous operations ORIF - Open reduction and internal fixation of fracture1 ORIF - Open reduction and internal fixation of fracture 1Rod in place Social History Social History Type Response Substance Abuse Use: Past. Type: Marijuana. Recreational Drug Route: Inhaled.1 Exercise Exercise duration: 0. Alcohol Past, Previous treatment: None. Smoking Status Current every day smoker; Type: Cigarettes; Tobacco use per day: 35; Number of years: 39; Lives with someone who smokes; Cigarette Smoking Last 365 Days No; Reg Smoking Cessation Counseling No 1years ago- Assessment and Plan No data available for this section
--- OUTSIDE RECORDS SUMMARY | 2018-11-03 13:00 | XMS REPORT ---
Author [facility] Address Unknown Phone Unavailable Care Team Providers Care Rheumatology Specialist Name Role Phone Unavailable Unavailable Payers Payer Name Policy Type Policy Number Effective Date Expiration Date Problems This patient has no known problems. Allergies, Adverse Reactions, Alerts Allergy Name Allergy Type Status Severity Reaction(s) Onset Date Inactive Date Treating Clinician Comments No Known Allergies DA Active U 2018-07-03 00:00:00 No Known Allergies DA Active U 2017-04-30 00:00:00 Medications This patient has no known medications.
[2018-11-03] MEDS ORDERED: IPRATROPIUM BROMIDE 0.02% 2.5 ML NEB NEB ONE (14:30)
[2018-11-03] MEDS ORDERED: LEVALBUTEROL HCL SOLN NEBU 0.63 MG/3 ML NEB INH ONE (14:30)
[2018-11-03 14:54] LABS: BASOPHILS # (AUTO) 0.1 (0.0-0.1); EOSINOPHILS # (AUTO) 0.1 (0.0-0.4); EOSINOPHILS % 1.4 % (0.0-6.0); HEMATOCRIT 30.6 % (38.2-49.6); LYMPHOCYTES # (AUTO) 2.2 (1.0-3.2); LYMPHOCYTES % 21.8 % (18.0-39.1); MEAN CORPUSCULAR HEMOGLOBIN 29.4 pg (28-32); MEAN CORPUSCULAR HGB CONC 35.9 g/dL (31-35); MEAN CORPUSCULAR VOLUME 81.8 fL (81-99); MONOCYTES # (AUTO) 1.1 (0.2-0.8); MONOCYTES % 10.9 % (4.4-11.3); NEUTROPHILS # (AUTO) 6.5 (2.1-6.9); NEUTROPHILS % 62.7 % (38.7-80.0); PLATELET COUNT 638 x10e3/uL (140-360); RED BLOOD COUNT 3.74 x10e6/uL (4.3-5.7); RED CELL DISTRIBUTION WIDTH 20.7 % (11.7-14.4)
[2018-11-03 15:19] LABS: ALBUMIN 1.7 g/dL (3.5-5.0); ALBUMIN/GLOBULIN RATIO 0.3 (0.8-2.0); ANION GAP 13.2 mmol/L (8-16); CALCIUM 8.2 mg/dL (8.4-10.2); CREATININE, SERUM 1.61 mg/dL (0.72-1.25)
[2018-11-03 15:20] LABS: POTASSIUM 5.2 mmol/L (3.5-5.1)
[2018-11-03 15:25] LABS: CREATINE KINASE MB 1.8 ng/mL (0-5.0)
[2018-11-03 15:26] LABS: INR 1.13
[2018-11-03 15:27] LABS: PARTIAL THROMBOPLASTIN TIME 34.1 seconds (23.8-35.5)
[2018-11-03 15:45] LABS: CLARITY,URINE SL CLOUDY (CLEAR); COLOR,URINE YELLOW (YELLOW); KETONES,URINE NEGATIVE (NEGATIVE); LEUKOCYTE ESTERASE ,URINE TRACE (NEGATIVE); NITRITE,URINE NEGATIVE (NEGATIVE); PROTEIN,URINE DIPSTICK NEGATIVE (NEGATIVE); URINE UROBILINOGEN 1 mg/dL (0.2 - 1)
[2018-11-03 15:46] LABS: BILIRUBIN,URINE 1+ (NEGATIVE)
[2018-11-03 15:55] LABS: BACTERIA,URINE FEW /HPF; WBC,URINE (MAN) 0-5 /HPF (0-5)
--- NOTE | 2018-11-03 16:42 | Diagnostic Imaging Report ---
Examination: Single AP view of the chest. COMPARISON: None. INDICATION: Chest pain DISCUSSION: Lungs are well-inflated. Linear opacity in the left lung base compatible with subsegmental atelectasis. No airspace consolidation, pleural effusion, or pneumothorax. Normal cardiomediastinal contour for technique. No acute osseous abnormality. IMPRESSION: Subsegmental atelectasis in the left lung base. Otherwise no acute cardiopulmonary abnormality. Signed by: Dr. Edward Jones M.D. on 11/03/2018 4:39 PM
[2018-11-03] MEDS ORDERED: ENALAPRIL MALEA20 MG PO (16:48)
[2018-11-03] MEDS ORDERED: MORPHINE-NS2 MG/1 ML SQ (16:48)
[2018-11-03] MEDS ORDERED: ATENOLOL100 MG PO (16:48)
[2018-11-03] MEDS ORDERED: SODIUM CHLORIDE 0.9% 500ML 500 ML ONE (16:57)
--- NOTE | 2018-11-03 16:58 | NUR ---
informed er of pt blood pressure, received v/o for NS 500ml bolus to start now.
[2018-11-03] MEDS ORDERED: SODIUM CHLORIDE 0.9% 500ML 500 ML IV ONE (17:00)
[2018-11-03] MEDS: PIPER-TAZ 3.375 GM 50 ML IV SCH (18:24)
[2018-11-03 18:46] LABS: EOSINOPHILS % (MANUAL) 1 % (0-7); LYMPHOCYTES % (MANUAL) 7 % (19-48); MONOCYTES % (MANUAL) 11 % (3.4-9.0); NEUTROPHILS % (MANUAL) 79 % (40-74)
--- NOTE | 2018-11-03 19:10 | NUR ---
assumed care of pt
[2018-11-03] MEDS: VANCOMYCIN 750MG/NS 150ML IVPB 150 ML IV SCH (19:14)
--- NOTE | 2018-11-03 19:25 | NUR ---
pt has swelling and redness to bilateral lower extremities with weeping to the left extremity
--- NOTE | 2018-11-03 19:43 | NUR ---
Pt assisted to use the urinal at bs. Pt stands with steady balanced gait and denies any dizziness.
--- NOTE | 2018-11-03 20:32 | NUR ---
Report to KARIN Ramírez
[2018-11-03 21:00] VITALS: BP 98/72
[2018-11-03 21:40] VITALS: BP 124/84
[2018-11-03 22:00] VITALS: BP 96/68
[2018-11-03] MEDS ORDERED: ONDANSETRON HCL INJ 2MG/ML 2ML 2 MG/ML VIAL IV PRN (22:15)
[2018-11-03] MEDS ORDERED: ACETAMINOPHEN 325 MG TAB PO PRN (22:15)
[2018-11-04] VITALS (15 sets, daily range): BP systolic 72–104; BP diastolic 47–69
[2018-11-04] MEDS: PIPER-TAZ 3.375 GM 50 ML IV SCH ×3 (02:45→18:13)
[2018-11-04] MEDS ORDERED: SODIUM CHLORIDE 0.9% 250ML 250 ML ONE (02:55)
[2018-11-04 04:35] LABS: CREATINE KINASE MB 1.1 ng/mL (0-5.0)
[2018-11-04 05:24] LABS: BASOPHILS # (AUTO) 0.1 (0.0-0.1); BASOPHILS % 1.1 % (0.0-1.0); EOSINOPHILS # (AUTO) 0.2 (0.0-0.4); EOSINOPHILS % 2.5 % (0.0-6.0); HEMATOCRIT 25.4 % (38.2-49.6); HEMOGLOBIN 9.2 g/dL (14.0-18.0); LYMPHOCYTES # (AUTO) 1.7 (1.0-3.2); LYMPHOCYTES % 21.1 % (18.0-39.1); MEAN CORPUSCULAR HEMOGLOBIN 29.1 pg (28-32); MEAN CORPUSCULAR HGB CONC 36.2 g/dL (31-35); MEAN CORPUSCULAR VOLUME 80.4 fL (81-99); MONOCYTES # (AUTO) 1.3 (0.2-0.8); NEUTROPHILS # (AUTO) 4.8 (2.1-6.9); NEUTROPHILS % 57.7 % (38.7-80.0); PLATELET COUNT 490 x10e3/uL (140-360); RED BLOOD COUNT 3.16 x10e6/uL (4.3-5.7); RED CELL DISTRIBUTION WIDTH 20.2 % (11.7-14.4)
[2018-11-04 05:45] LABS: ALANINE AMINOTRANSFERASE 73 IU/L (0-55); ALBUMIN 1.4 g/dL (3.5-5.0); ALBUMIN/GLOBULIN RATIO 0.3 (0.8-2.0); ALKALINE PHOSPHATASE 88 IU/L (40-150); ANION GAP 12.7 mmol/L (8-16); BLOOD UREA NITROGEN 47 mg/dL (7-26); BUN/CREATININE RATIO 27 (6-25); CALCIUM 7.5 mg/dL (8.4-10.2); CARBON DIOXIDE 19 mmol/L (22-29); CHLORIDE 107 mmol/L (98-107); CHOLESTEROL 160 MD/DL (0-199); CREATININE, SERUM 1.77 mg/dL (0.72-1.25); EST GLOMERULAR FILTRATION RATE 39 ML/MIN (60-); GLUCOSE 88 mg/dL (74-118); POTASSIUM 5.7 mmol/L (3.5-5.1); SODIUM 133 mmol/L (136-145); TRIGLYCERIDES 170 MG/DL (0-149)
[2018-11-04 05:49] LABS: HDL CHOLESTEROL < 5 MG/DL (40-60); LDL CHOLESTEROL 121 MG/DL (60-130)
[2018-11-04] MEDS: VANCOMYCIN 750MG/NS 150ML IVPB 150 ML IV SCH ×2 (06:28→18:13)
--- NOTE | 2018-11-04 07:40 | NUR ---
Placed call to Dr. Dax paulino for call back to make him aware of blood pressure and lab values.
[2018-11-04] MEDS ORDERED: SOD POLYSTYRENE SULFONATE SUSP 15 GM/60 ML BTL PO NR ×2 (07:45→10:15)
[2018-11-04] MEDS ORDERED: ALBUMIN 25% 25GM 100ML 0.25 GM/ML BTL IV NR (09:22)
--- NOTE | 2018-11-04 10:00 | NUR ---
Made Dr. Dax Castaneda patient received 15 Grams of Kayexalate x 1 dose ordered given [address] aFust, received orders to d/c 30 Grams ordered instead give only 15 Grams x1 dose only.
[2018-11-04] MEDS ORDERED: SOD POLYSTYRENE SULFONATE SUSP 15 GM/60 ML BTL PO ONE (11:15)
--- NOTE | 2018-11-04 11:42 | NUR ---
WOUND CARE CONSULTATION: INITIAL EVALUATION Patient admitted from home to ER with complaints of lower extremity pain and swelling. DX: Atrial Fibrillation, Cellulitis, Cirrhosis, Pedal Edema, Fluid Overload. HX: HTN, COPD, HEP C, Cirrhosis. Smoker with occasional alcohol use. LABS: WBC8.26 HGB9.2 HCT25.4 NEUT%57.7 GLU88 ALB1.4 BLE venous studies - No DVT. Wound Care Consulted for BLE ulcer and Sacral Pressure Ulcer Evaluation. PATIENT VISIT: Patient in bed with head of bed at 40 Degrees - Difficulty breathing& SOB states unable to have head lowered. Blood pressure trending low. Awaiting transfer to ICU for closer monitoring. Visco Mattress in place. Patient able to sit out of bed with minimal assistance. Apolinar Score 16 Presents with distended abdomen ( HX Cirrhosis) BLE Swelling with +4 edema. -RLE Reddened from area below the knee to ankle. No open ulcers noted Some superficial scabbing noted. Area warmer than other areas that are non reddened. -LLE Presents with multiple bullae and small open blisters scattered throughout anterior aspect of leg weeping copious amount of serous fluid. Patient able to turn with minimal assistance. Bilateral Sacro-gulteal ulcers present. Reddened and non blanchable. Patient verbalizes prior diagnosis of ulcers to area years ago. Unable to verbalize extent of tissue damage. Verbalizes some discomfort to area upon touch. IMPRESSION: 1. LLE - Cellulitis with open Bullae 2. RLE- Cellulitis without open ulcers. 3. Bilateral Sacro-gluteal Areas - Stage I - Pressure Ulcer- Present On Admission. RECOMMENDATION: 1. LLE - Open Bullae: - Wash Leg with Hibiclens Soap and NS then pat dry thoroughly. - Apply Xeroform Single Layer over Open areas and Cover with ABD Pad and Secure with Kerlix Daily. 2. Bilateral Sacro-gluteal Areas - Stage I - Pressure Ulcer POA. - Wash area with mild soap and water then pat dry thoroughly - Apply Lakeshore Cream q12H and Cover with Allevyn Foam Sacrum Dressing Daily. 3. Turn and Reposition patient q2h using turning clock schedule 4. Apply Rotational SAUMYA Air Mattress. 5. Offload Heels with pillows while in bed. 6. Start Moderate PUP Protocol. Thank you for consulting with Wound Care. Addendum: 11/04/18 at 1158 by Armando Uriarte RN Amended: Links added. Addendum: 11/04/18 at 1203 by Armando Uriarte RN UPDATED RECOMMENDATIONS 1. LLE - Open Bullae: - Wash Leg with Hibiclens Soap and NS then pat dry thoroughly. - Apply Xeroform Single Layer over Open areas and Cover with ABD Pad and Secure with Kerlix Daily. 2. Bilateral Sacro-gluteal Areas - Stage I - Pressure Ulcer POA. - Wash area with mild soap and water then pat dry thoroughly - Apply Lakeshore Cream and Cover with Allevyn Foam Sacrum Dressing q12H and PRN Soiling. 3. Turn and Reposition patient q2h using turning clock schedule 4. Apply Rotational SAUMYA Air Mattress. 5. Offload Heels with pillows while in bed. 6. Start Moderate PUP Protocol.
[2018-11-04] MEDS: ZINC OXIDE / BALSAM PERU 30 GM TUBE TOP SCH (12:00)
[2018-11-04] MEDS: FUROSEMIDE INJ 10 MG/ML 4 ML VIAL IV SCH ×2 (12:09→18:13)
[2018-11-04 12:31] LABS: PHOSPHORUS 3.6 MG/DL (2.3-4.7)
--- NOTE | 2018-11-04 12:39 | NUR ---
EDUCATED ABOUT IMM, SIGNED, FILED IN CHART, WITH COPY LEFT WITH FAMILY AT BEDSIDE.
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
--- NOTE | 2018-11-04 14:00 | NUR ---
Handoff report to Slade Johnson RN made aware of Dr. Faust orders to transfer to ICU and possible levo drip.
--- NOTE | 2018-11-04 15:14 | NUR ---
Holding physical therapy services since patient is moved to higher level of care (ICU) from [facility] since initial PT eval order. Will need new PT orders when appropriate. Thank you. Addendum: 11/04/18 at 1515 by Jeramy ruiz PT Amended: Links added.
--- NOTE | 2018-11-04 16:29 | History and Physical ---
REASON FOR ADMISSION: This is a 63-year-old male, patient of mine, presented to the emergency room with severe leg swelling and generalized weakness and bilateral lower extremity swelling which is getting worse. HISTORY OF PRESENT ILLNESS: Mr. Farheen Orozco is a 63-year-old male patient with previous history of cirrhosis of liver with hep C, COPD, hypertension, was having worsening of the leg swelling and then patient's right leg started swelling and getting redness and painful. In the emergency room, the patient did come with a high blood pressure, but then the patient became hypotensive without any medication or any diuretic given. The patient is being subsequently admitted. REVIEW OF SYSTEMS: The patient denies chest pain, shortness of breath, cough, fever. The patient complained of leg swelling, redness and pain. The patient complained of profound weakness. PAST MEDICAL HISTORY: Hypertension, COPD, hepatitis C, liver cirrhosis. PAST SURGICAL HISTORY: Right hip surgery, left knee surgery. ALLERGIES: THE PATIENT IS ALLERGIC TO SULFA DRUG. MEDICATIONS: See from the list. SOCIAL HISTORY: The patient is a current daily smoker and uses alcohol occasionally. Denies using any drugs. PHYSICAL EXAMINATION: VITALS: The patient's temperature is 97.6, pulse rate 120, blood pressure 90/60, respiratory rate 24, O2 saturation 96%. HEENT: Icterus present. Jaundice present. Normocephalic, atraumatic. LUNGS: Bilateral equal air entry. Basal rales present. HEART: S1, S2 regular. Systolic murmur present. ABDOMEN: Soft. Bowel sounds present. Liver and spleen enlarged. NEUROLOGICAL: The patient has no focal neurological deficit. EXTREMITIES: The patient has bilateral +4 edema. Right lower leg has redness, swelling, and induration also. ADMITTING IMPRESSION/DIAGNOSES: A 63-year-old male patient with hypotension and likely sepsis secondary to cellulitis of the leg. The patient has a sepsis syndrome with hypotension with acute to renal failure and advanced liver cirrhosis with hepatitis C. The patient has atrial fibrillation with rapid ventricular rate and hyperkalemia. PLAN: The patient admitted with above diagnosis. The patient will be treated with IV antibiotic, Zosyn and vancomycin. We will obtain Cardio and Renal consult and ID consultation and we will obtain blood cultures. The patient will be admitted in the intensive care unit for close monitoring as the patient is hypotensive. IV albumin has been given. MD CLARKE Cornejo/JUDY /[id number]
--- NOTE | 2018-11-04 16:56 | Diagnostic Imaging Report ---
Abdominal ultrasound. History: Hepatitis Comparison: <None available>. Discussion: Transverse and longitudinal images of the abdomen were obtained demonstrating an enlarged liver measuring 20.2 cm. Echotexture is inhomogeneous in which there are bright echogenic dots throughout a background of decreased liver parenchymal echogenicity. This is a "starry araceli appearance of the liver" compatible with findings of acute hepatitis. There is a hypoechoic mass with some echogenic components present in the right lobe of the liver measuring 4.8 x 4.4 x 4.6 cm. The portal vein is patent with hepatopetal flow and is within normal limits measuring 12 mm in diameter. The biliary tree is within normal limits with the common bile duct measuring 6 mm in diameter. There is no evidence of wall thickening or pericholecystic fluid. Echogenic lesions within the gallbladder without posterior acoustic shadowing likely represent cholesterol polyps or echogenic sludge. The sonographic De Leon's sign was negative. The kidneys are normal in size and echogenicity bilaterally without evidence of hydronephrosis, stones, or mass. The right kidney measures 12.1 x 4.7 x 5.8 cm and the left kidney measures 11.1 x 4.8 x 4.6 cm. The spleen is normal in size and appearance measuring 12.9 x 6.5 x 5.4 cm. There is limited evaluation of the pancreas and aorta. The IVC is patent. There is a trace amount of free fluid. IMPRESSION: 1. Enlarged heterogeneous liver compatible with acute hepatitis. 2. Hypoechoic liver lesion; suggest liver mass protocol CT for further evaluation. 3. Echogenic substance within the gallbladder without shadowing likely represents polyps or sludge. 4. There is a trace amount of ascites. Signed by: Dr. Shane Paredes DO on 11/04/2018 4:53 PM
[2018-11-04] MEDS ORDERED: ALBUMIN 25% 12.5GM 50ML 100 ML IV ONE ×2 (17:12→17:15)
[2018-11-04] MEDS ORDERED: ALBUMIN 25% 25GM 100ML 0.25 GM/ML BTL IV ONE (17:15)
--- NOTE | 2018-11-04 18:20 | History and Physical ---
REASON FOR CONSULT: Increased creatinine. HISTORY OF PRESENT ILLNESS: This is a 63-year-old man, who was admitted with lower extremity pain and swelling and redness. This has been going on for the last two weeks, but got worse today prior to admission. PAST MEDICAL HISTORY: Includes: 1. Hypertension. 2. COPD. 3. Hepatitic C. 4. Cirrhosis. MEDICATIONS: Please see record. ALLERGIES: NO KNOWN DRUG ALLERGIES. SOCIAL HISTORY: Occasional alcohol. No drugs. FAMILY HISTORY: Noncontributory. PAST SURGICAL HISTORY: Hip surgery and knee surgery. REVIEW OF SYSTEMS: Denies any nausea, vomiting, constipation, diarrhea. Denies any blood in the stool, blood in the urine. Denies any dysuria or hematuria. Positive for skin changes with positive redness. Positive weakness. No changes in the appetite. No wheezes. No increased frequency. All pertinent review of systems were reviewed and positive as above. PHYSICAL EXAMINATION: VITAL SIGNS: Blood pressure 86/68. GENERAL: Alert, following commands. HEENT: Pupils are equal and reactive to light and accommodation. NECK: No JVD. No bruits. LUNGS: No rhonchi. No rales. HEART: Regular rate and rhythm. No S3. No S4. ABDOMEN: Nontender, nondistended. EXTREMITIES: Bilateral redness, swelling. NEUROLOGIC: Cranial nerves 2 through 12 are grossly intact. Sensation intact. Motor intact. LABORATORY DATA: White count 10.9, hemoglobin 11, hematocrit 30, platelets 638. Sodium 133, up from 130; potasium 5.7, was 5.2; creatinine up to 1.77. Albumin 1.4, cholesterol 160. Urinalysis, positive bilirubin. Also total bilirubin is 2.3. Chest x-ray, subsegmental atelectasis. Venous doppler pending. ASSESSMENT AND PLAN: 1. Acute versus chronic kidney disease. The patient is not aware of any kidney disease previously. This can be secondary to glomerulonephritis secondary to hepatitis C or acute tubular necrosis secondary to infection and hypotension. The patient is currently being transferred to ICU. We will check fraction excretion of sodium, we will also check urine eosinophil and we will check renal ultrasound. At this time, I did review his medication and he is on adequate medications as far as Zosyn, but vancomycin will probably need to be adjusted, we will check level. He is on Lasix also. 2. Hyperkalemia. The patient will be treated with Kayexalate, but we will need to check also aldosterone level in case the patient have hypoaldosteronism. 3. Chronic obstructive pulmonary disease. The patient is on p.r.n. medications. The patient is with acute kidney failure and hyperkalemia, workup in progress. River Castellano MD MA/JUDY /[id number]
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
[2018-11-05] VITALS (25 sets, daily range): BP systolic 77–123; BP diastolic 46–97
[2018-11-05] MEDS: ZINC OXIDE / BALSAM PERU 30 GM TUBE TOP SCH ×2 (00:36→08:43)
--- NOTE | 2018-11-05 02:01 | Consultation ---
DATE OF CONSULTATION: HISTORY OF PRESENT ILLNESS: Mr. Orozco is a patient of mine, known to me from office visit. He is a 63-year-old gentleman carries a history of liver disease due to hepatitis C and alcohol abuse. As far as his hepatitis C, it is genotype 1A. He has never been treated for hepatitis C. His hepatitis STUDENT level at my office was . The patient was evaluated at my office for treatment for hepatitis C and he was pending approval for Harvoni medication. When the workup of his liver revealed a mass suggestive of malignancy on his liver about 4 to 5 cm in the right liver. The patient because of his fibrosis scored a 4 with suggestive cirrhosis and a mass on his liver and a history of hepatitis C. He was referred to [facility] Hepatology Unit. However, on his visit to my office on November 03, I found that he has never gone to his liver clinic meeting and also on that same visit on November 03, I found that he has been suffering from bilateral lower extremity swelling and extremity extensive cellulitis of his right leg in addition to possible increase in ascites and I refer him to the emergency department to be admitted for management. At the end of his workup, the patient needs to go back to visit the liver unit at [facility] and he was encouraged so. In the emergency department, the patient was noted to be in paroxysmal atrial fibrillation with frequent PACs and PVCs, irregular rhythm and also noted to have some increase in renal function. Renal Service was consulted and also was noted to be hypertensive. He was admitted to the ICU for possible starting him on Levophed. Today, on November 04, he is doing better, he was started on antibiotic. His ultrasound of the abdomen done here in the hospital show only trace amount of ascites, of course did show the mass, which we know about on his liver. Tolerating his diet well. He is on renal diet and I am adding 2 g salt diet today. PAST MEDICAL HISTORY: Hepatitis C, asthma. PAST SURGICAL HISTORY: Left knee surgery, sadaf in his right femur, benign tumor removed from his leg, and right hip surgery. FAMILY HISTORY: His son had colon cancer at 33, has colostomy and another son diagnosis of colon cancer in his 30s. SOCIAL HISTORY: He is unemployed. Has two kids. He is . He claimed he stopped drinking and he is still smoking. ALLERGIES: TO SULFA, WHICH CAUSED SOME RASH. PHYSICAL EXAMINATION: VITAL SIGNS: Today, temperature 96.9, blood pressure 87/59, pulse 63. GENERAL: Awake, alert, oriented. NECK: Supple. LUNGS: Clear. HEART: Regular rhythm with occasional irregular beats. ABDOMEN: Soft, nontender, nondistended. No signs of acute abdomen. EXTREMITIES: Bilateral lower extremity edema with severe erythema of his lower legs suggestive of cellulitis. CENTRAL NERVOUS SYSTEM: Motor function grossly intact. IMPRESSION: Cellulitis. The patient currently receiving antibiotic. He is on Piperacillin-Tazobactam and vancomycin. Nothing to add on that assessment. Has chronic renal insufficiency. The patient currently seen by the Nephrology team for his hepatitis C cirrhosis and mass on his liver. As soon as he is clinically stable and able to be discharged, I encouraged him to visit with the liver unit at [facility] for workup of his possible liver malignancy. His alpha fetoprotein in my office was 10.5. Finally, there is not enough fluid in his belly at this point to be undergone paracentesis. Olga Nuno MD RD/JUDY /[id number]
[2018-11-05] MEDS: PIPER-TAZ 3.375 GM 50 ML IV SCH ×2 (02:03→09:03)
[2018-11-05 05:06] LABS: BASOPHILS # (AUTO) 0.1 (0.0-0.1); BASOPHILS % 0.9 % (0.0-1.0); EOSINOPHILS # (AUTO) 0.2 (0.0-0.4); HEMATOCRIT 24.6 % (38.2-49.6); HEMOGLOBIN 8.7 g/dL (14.0-18.0); LYMPHOCYTES # (AUTO) 1.7 (1.0-3.2); LYMPHOCYTES % 19.1 % (18.0-39.1); MEAN CORPUSCULAR HEMOGLOBIN 28.6 pg (28-32); MEAN CORPUSCULAR HGB CONC 35.4 g/dL (31-35); MEAN CORPUSCULAR VOLUME 80.9 fL (81-99); MONOCYTES # (AUTO) 1.4 (0.2-0.8); MONOCYTES % 15.8 % (4.4-11.3); NEUTROPHILS # (AUTO) 5.4 (2.1-6.9); NEUTROPHILS % 61.2 % (38.7-80.0); PLATELET COUNT 453 x10e3/uL (140-360); RED BLOOD COUNT 3.04 x10e6/uL (4.3-5.7); RED CELL DISTRIBUTION WIDTH 20.9 % (11.7-14.4)
[2018-11-05 05:40] LABS: ALBUMIN/GLOBULIN RATIO 0.4 (0.8-2.0); ANION GAP 13.7 mmol/L (8-16); CALCIUM 8.1 mg/dL (8.4-10.2); CREATININE, SERUM 1.92 mg/dL (0.72-1.25); POTASSIUM 4.7 mmol/L (3.5-5.1)
[2018-11-05] MEDS: VANCOMYCIN 750MG/NS 150ML IVPB 150 ML IV SCH (05:44)
[2018-11-05] MEDS: FUROSEMIDE INJ 10 MG/ML 4 ML VIAL IV SCH ×2 (08:43→18:12)
[2018-11-05] MEDS: PANTOPRAZOLE SOD 40 MG TABEC PO SCH (08:43)
--- NOTE | 2018-11-05 13:14 | NUR ---
Nutrition Screen Note RD Recommendation for Physician: -Continue current diet as ordered Plan of Care: RD following, monitoring for tolerance and adequacy Nutrition reason for involvement: Diagnosis Primary Diagnose(s): sepsis, COPD, liver cirrhosis, chronic hep C PMH: Hypertension, asthma, chronic obstructive pulmonary disease, chronic hepatitis C infection, cirrhosis of the liver Ht: 69in Wt: 189lb BMI: 27.9kg/m2 IBW: 160lb RD Assessment: (11/05) Chart reviewed. Labs and meds reviewed. 63yo M, who was admitted for worsening leg edema bilaterally, scrotal edema and gradually worsening dyspnea on exertion. Currently on diuretics. Negative blood culture. GI following. Trace ascites but no plan for paracentesis at this time. Visited pt in the room. Pt reported good appetite. No complains of nausea or vomiting. Pt denied any chewing or swallowing difficulty. LBM- 11/05, liquid black stool (notified KARIN June). Pt denied any weight loss or decreased PO intake [employer]. Will continue to monitor and follow. Current Diet: renal/ 2g sodium Malnutrition Evaluation (11/05) The patient does not meet criteria for a specified degree of malnutrition at this time. Will re-evaluate at follow-up as appropriate. Diet Education Needs Assessment: Diet education not indicated. Nutrition Care Level: low Signed: Carleen Bhandari, MS, RD, LD
[2018-11-05] MEDS ORDERED: VANCOMYCIN 500MG/NS 0.9% 100ML 100 ML IV SCH (14:30)
[2018-11-05 16:29] LABS: FERRITIN 68.19 ng/mL (21.81-274.66)
--- NOTE | 2018-11-05 20:00 | Progress Note ---
DATE: 11/05/2018 Cardiology Progress Note SUBJECTIVE: Feels better today. No lightheadedness, shortness of breath, or chest pain. On telemetry, predominantly in sinus rhythm with some bouts of frequent PACs and short runs of paroxysmal atrial fibrillation. OBJECTIVE: VITAL SIGNS: Temperature 98 degrees, heart rate 77, blood pressure 92/52 with a MAP of 65, respiratory rate 11, O2 saturation 93%, BMI 27.9, weight 189. GENERAL: In no acute distress, alert. NECK: JVD to lower third of the neck at 35-degree head of bed elevation. CHEST: With decreased breath sounds in bilateral bases. CARDIOVASCULAR: Regular rate and rhythm with frequent compensatory pauses. Normal S1 and S2. Systolic ejection murmur. No S3. No S4. ABDOMEN: Soft, distended, nontender. Bowel sounds positive. EXTREMITIES: With 2+ edema and erythema to right more than left lower extremity. CARDIOVASCULAR MEDICATIONS: Reviewed are Zosyn and vancomycin antibiotics, furosemide 40 mg b.i.d. LABORATORY DATA: Studies reviewed. Sodium 135, potassium 4.7, chloride 105, bicarbonate 21, BUN 48, creatinine 1.92, glucose 83. White blood cells 8.9, hemoglobin 8.7, platelets 453. INR 1.1. PT is 15, PTT 34. AST 222, ALT 64, total bilirubin 3.4, alkaline phosphatase 78. IMAGING STUDIES: Findings suspicious for inflammation of the liver. Per GI notes, has had a prior liver mass documented on outside imaging pending further workup as outpatient. Of note, RDW elevated cell blood count in the setting of anemia. I have concern for iron deficiency. ASSESSMENT: 1. Paroxysmal atrial fibrillation. 2. Acute diastolic heart failure with LVEF of 55% on echocardiogram. 3. End-stage liver disease. 4. Hepatitis C viral infection. 5. Active hepatitis. 6. Hepatic mass pending further workup as outpatient. 7. Anemia concerning for iron deficiency. 8. Septic shock, improved following albumin infusions. 9. Lower extremity cellulitis, right more than left, on antibiotic therapy. 10. Acute renal failure. 11. Metabolic acidosis, improving. 12. Hyperkalemia, improving. RECOMMENDATIONS: 1. Continue current cardiovascular medications. 2. Volume status improving. 3. Overall, positive response to antibiotics. 4. Anemia workup ordered and advised including fecal occult blood test and iron studies. Given this finding at this point, anticoagulation is not started for thromboembolic risk prevention in the setting of atrial fibrillation. If confirmed positive occult blood or iron-deficient, please proceed with further GI evaluation. This would be preferable prior to deciding on anticoagulation strategies for thromboembolic risk prevention in the setting of atrial fibrillation. Overall, guarded prognosis. MD BarnhartV/MODL /[id number]
[2018-11-05] MEDS: PIPERACILLIN/TAZO 2.25 GM 50 ML IV SCH (21:37)
--- NOTE | 2018-11-05 21:56 | Progress Note ---
DATE: SUBJECTIVE: Mr. Orozco is doing fine. Continue receiving his IV antibiotic. He is awake, alert, oriented, afebrile, hemodynamically stable. Tolerating his diet well. LABORATORY DATA: His hemoglobin 8.7, hematocrit 24.6, platelets 450, white cell count 8.9. His total bilirubin is 3.4, AST 222, ALT 64, and alkaline phosphatase 78. PLAN: Nothing to add from GI standpoint. As soon as he gets discharged, we will refer him to the Liver Unit at [facility] for workup of his liver mass seen on a CAT scan. Olga Nuno MD RD/JUDY /[id number]
[2018-11-05 22:54] LABS: OSMOLALITY,SERUM OSMOMETER 300 mOsmol/kg (280-301)
[2018-11-06] VITALS (22 sets, daily range): BP systolic 85–127; BP diastolic 52–92
[2018-11-06] MEDS: PIPERACILLIN/TAZO 2.25 GM 50 ML IV SCH ×3 (05:19→22:00)
--- NOTE | 2018-11-06 05:20 | NUR ---
relayed message to Jet Michelle of positive antibody for hep c.
[2018-11-06 05:35] LABS: BASOPHILS # (AUTO) 0.1 (0.0-0.1); BASOPHILS % 0.9 % (0.0-1.0); EOSINOPHILS # (AUTO) 0.2 (0.0-0.4); EOSINOPHILS % 2.7 % (0.0-6.0); HEMATOCRIT 26.2 % (38.2-49.6); HEMOGLOBIN 9.1 g/dL (14.0-18.0); LYMPHOCYTES # (AUTO) 1.6 (1.0-3.2); LYMPHOCYTES % 19.8 % (18.0-39.1); MEAN CORPUSCULAR HEMOGLOBIN 28.8 pg (28-32); MEAN CORPUSCULAR HGB CONC 34.7 g/dL (31-35); MEAN CORPUSCULAR VOLUME 82.9 fL (81-99); MONOCYTES # (AUTO) 1.3 (0.2-0.8); MONOCYTES % 15.7 % (4.4-11.3); NEUTROPHILS # (AUTO) 4.8 (2.1-6.9); NEUTROPHILS % 58.3 % (38.7-80.0); PLATELET COUNT 416 x10e3/uL (140-360); RED BLOOD COUNT 3.16 x10e6/uL (4.3-5.7); RED CELL DISTRIBUTION WIDTH 20.9 % (11.7-14.4)
[2018-11-06 06:03] LABS: ALBUMIN 1.9 g/dL (3.5-5.0); ALBUMIN/GLOBULIN RATIO 0.4 (0.8-2.0); ANION GAP 15.1 mmol/L (8-16); CALCIUM 7.9 mg/dL (8.4-10.2); CREATININE, SERUM 1.69 mg/dL (0.72-1.25); POTASSIUM 4.1 mmol/L (3.5-5.1)
[2018-11-06 07:46] LABS: BLAST CELLS % MANUAL 1; EOSINOPHILS % (MANUAL) 3 % (0-7); LYMPHOCYTES % (MANUAL) 27 % (19-48); METAMYELOCYTES % (MANUAL) 1 % (0-0); MONOCYTES % (MANUAL) 6 % (3.4-9.0); MYELOCYTES % (MANUAL) 1 % (0-0); NEUTROPHILS % (MANUAL) 58 % (40-74)
[2018-11-06] MEDS: PANTOPRAZOLE SOD 40 MG TABEC PO SCH (07:46)
[2018-11-06] MEDS: VANCOMYCIN 500MG/NS 0.9% 100ML 100 ML IV SCH (07:46)
[2018-11-06 07:47] LABS: ANISOCYTOSIS MODERATE; HYPOCHROMASIA MODERATE; PLATELET ESTIMATE ADEQUATE; PLATELET MORPHOLOGY COMMENT NORMAL; RBC MORPHOLOGY COMMENT ABNORMAL; TARGET CELLS FEW
[2018-11-06] MEDS: FUROSEMIDE INJ 10 MG/ML 4 ML VIAL IV SCH ×2 (08:12→17:05)
[2018-11-06] MEDS ORDERED: ZYRTEC10 MG PO (10:04)
[2018-11-06] MEDS: MAGNESIUM OXIDE 400 MG TAB PO SCH (10:41)
[2018-11-06] MEDS: LORATADINE 10 MG TAB PO SCH (10:41)
[2018-11-06] MEDS ORDERED: METOPROLOL TARTRATE 25 MG TAB ONE (10:42)
[2018-11-06] MEDS: METOPROLOL TARTRATE 25 MG TAB PO SCH ×2 (10:45→17:10)
--- NOTE | 2018-11-06 10:52 | NUR ---
LEFT MESSAGE FOR DR MULLER REGARDING STOOL POSITIVE OB Addendum: 11/06/18 at 1424 by Melania Joshi RN SPOKE WITH DR MULLER AND NO NEW ORDERS GIVEN
[2018-11-06] MEDS ORDERED: MAGNESIUM SULFATE 2GM/50ML 50 ML IV NR (11:00)
--- NOTE | 2018-11-06 11:59 | Progress Note ---
DATE: 11/06/2018 Cardiology Progress Note SUBJECTIVE: Khalif denies any chest pain or shortness of breath today. He is back in atrial fibrillation with episodes of rapid ventricular response, however, his systolic blood pressure is now overall improved. Denies lightheadedness. OBJECTIVE: VITAL SIGNS: Temperature of 98.3, heart rate of 111, blood pressure 116/66, respiratory rate 16, O2 saturation 95%. BMI 27.9 and telemetry atrial fibrillation with rapid ventricular response. GENERAL: In no acute distress, alert. NECK: No JVD. CHEST: Decreased breath sounds in bilateral bases. CARDIOVASCULAR: Irregularly irregular rate and rhythm. Normal S1 and S2. No S3 or S4. ABDOMEN: Soft, distended. Bowel sounds positive. EXTREMITIES: 1+ edema to lower extremities bilaterally. CARDIOVASCULAR MEDICATIONS: Reviewed are Zosyn and vancomycin antibiotics, furosemide 40 mg b.i.d. LABORATORY DATA: Studies reviewed. Sodium 134, potassium 4.1, chloride 102, bicarbonate 21, BUN 41, creatinine 1.69, glucose of 101. White blood cells of 8.2, hemoglobin 9.1, platelets 416. INR 1.1, PTT 15, PTT 34, AST 201, ALT 63, alkaline phosphatase 87, total bilirubin is 3.4. ASSESSMENT: A 63-year-old man presenting with septic shock in the setting of lower extremity cellulitis. 1. End-stage liver disease. 2. Hepatitis C viral infection. 3. Acute hepatitis. 4. Liver mass. 5. Atrial fibrillation, paroxysmal. 6. Hypertension, history. 7. Acute renal failure. 8. Status post hyperkalemia. 9. Status post metabolic acidosis, improving. 10. Anemia with positive fecal occult blood test. 11. Acute on chronic diastolic heart failure. RECOMMENDATIONS: 1. Not currently a candidate for anticoagulation given fecal occult blood test positive and anemia. GI evaluation advised, timing of which deferred to GI's expertise. 2. For now, rate control strategy is advised given improvement in blood pressure off any pressors with a systolic blood pressure in the 110s today to 120s. Initiate metoprolol 25 mg every 12 hours and assess response. Discussed plan of care with nursing staff and patient. 3. Continue rest of cardiovascular medications. 4. Continue diuretics, transitioned to oral starting tomorrow. MD CARLYLE Moulton/MODL /[id number]
[2018-11-06] MEDS: ZINC OXIDE / BALSAM PERU 30 GM TUBE TOP SCH ×2 (12:01)
--- NOTE | 2018-11-06 12:30 | NUR ---
PATIENT AMBULATED TO TOILET WITHOUT DIFFICULTY. SOME SOB NOTED AND O2 SATS STABLE
--- NOTE | 2018-11-06 15:44 | NUR ---
PATIENT AMBULATED ON UNIT WITH PHYSICAL THERAPY ON CONTINUOUS MONITORING. HR UP TO 120-140'S
--- NOTE | 2018-11-06 16:08 | NUR ---
DRESSING CHANGE TO LLE
[2018-11-06] MEDS: LEVALBUTEROL HCL SOLN NEBU 1.25 MG/3 ML NEB INH SCH (19:25)
--- NOTE | 2018-11-06 20:30 | NUR ---
Received patient from ICU, vitals stable, no complaints raised
[2018-11-07] VITALS (8 sets, daily range): BP systolic 103–116; BP diastolic 51–74
--- NOTE | 2018-11-07 | NUR ---
Assisted patient to the bedside commode and back to bed, labored breathing with exertion, vitals remain stable
[2018-11-07] MEDS: LEVALBUTEROL HCL SOLN NEBU 1.25 MG/3 ML NEB INH SCH ×4 (02:05→19:45)
[2018-11-07] MEDS: PIPERACILLIN/TAZO 2.25 GM 50 ML IV SCH ×3 (06:00→22:01)
[2018-11-07] MEDS: VANCOMYCIN 500MG/NS 0.9% 100ML 100 ML IV SCH (06:00)
[2018-11-07] MEDS: PANTOPRAZOLE SOD 40 MG TABEC PO SCH (09:33)
[2018-11-07] MEDS: MAGNESIUM OXIDE 400 MG TAB PO SCH (09:33)
[2018-11-07] MEDS: FUROSEMIDE INJ 10 MG/ML 4 ML VIAL IV SCH ×2 (09:33→16:05)
[2018-11-07] MEDS: METOPROLOL TARTRATE 25 MG TAB PO SCH ×2 (09:33→16:05)
--- NOTE | 2018-11-07 09:39 | NUR ---
pt resting in bed, alert and oriented. pt has own zyrtec and admin himself.
[2018-11-07] MEDS: ZINC OXIDE / BALSAM PERU 30 GM TUBE TOP SCH ×2 (12:39)
--- NOTE | 2018-11-07 15:38 | Progress Note ---
DATE: 11/07/2018 Cardiology Progress Note SUBJECTIVE: Denies shortness of breath or chest pain. Denies lightheadedness. OBJECTIVE: VITAL SIGNS: Temperature 97.5, heart rate 108, respiratory rate 18, O2 saturation 95% on nasal cannula, and blood pressure 116/66. Telemetry, in sinus rhythm with frequent PACs and short runs of atrial fibrillation. GENERAL: In no acute distress, alert, oriented. NECK: No JVD. No carotid bruits. CHEST: Clear to auscultation bilaterally. CARDIOVASCULAR: Regular rate and rhythm with frequent compensatory process. Systolic ejection murmur. No S3, no S4. ABDOMEN: Soft, distended, nontender. Bowel sounds positive. EXTREMITIES: A 1+ edema to bilateral lower extremities. Erythema to right more than left lower extremity. Continues to improve. CARDIOVASCULAR MEDICATIONS: Reviewed. 1. Metoprolol tartrate 25 mg b.i.d. 2. Furosemide 40 mg b.i.d. IV. 3. Zosyn. 4. Vancomycin. 5. Antibiotics. STUDIES: Reviewed. None for today. ASSESSMENT: A 63-year-old man presenting with: 1. Severe sepsis with septic shock in the setting of lower extremity cellulitis. 2. End-stage liver disease. 3. Hepatitis C viral infection. 4. Acute hepatitis/transaminitis. 5. Liver mass. 6. Atrial fibrillation, paroxysmal. 7. History of hypertension. 8. Acute renal failure. 9. Status post hyperkalemia. 10. Status post metabolic acidosis. 11. Anemia with positive fecal occult blood test. 12. Acute on chronic diastolic heart failure. RECOMMENDATIONS: 1. Continue diuretics. Volume status is slowly improving. 2. Continue metoprolol for adequate rate control. 3. Not currently a candidate for anticoagulation given anemia and positive fecal occult blood test. GI evaluation advised. Timing deferred to GI's expertise. 4. Continue rest of cardiovascular medications. 5. Antibiotics per Primary Service. Julián Osorio MD AFV/MODL /[id number]
[2018-11-08] VITALS (9 sets, daily range): BP systolic 97–149; BP diastolic 56–77
[2018-11-08] MEDS: ZINC OXIDE / BALSAM PERU 30 GM TUBE TOP SCH ×3 (00:20→23:58)
[2018-11-08] MEDS: LEVALBUTEROL HCL SOLN NEBU 1.25 MG/3 ML NEB INH SCH ×4 (00:46→19:15)
[2018-11-08 05:18] LABS: BASOPHILS # (AUTO) 0.1 (0.0-0.1); BASOPHILS % 0.8 % (0.0-1.0); EOSINOPHILS # (AUTO) 0.2 (0.0-0.4); EOSINOPHILS % 2.2 % (0.0-6.0); HEMATOCRIT 26.9 % (38.2-49.6); HEMOGLOBIN 9.6 g/dL (14.0-18.0); LYMPHOCYTES # (AUTO) 1.6 (1.0-3.2); LYMPHOCYTES % 18.6 % (18.0-39.1); MEAN CORPUSCULAR HEMOGLOBIN 29.2 pg (28-32); MEAN CORPUSCULAR HGB CONC 35.7 g/dL (31-35); MEAN CORPUSCULAR VOLUME 81.8 fL (81-99); MONOCYTES # (AUTO) 1.4 (0.2-0.8); MONOCYTES % 15.9 % (4.4-11.3); NEUTROPHILS # (AUTO) 5.2 (2.1-6.9); NEUTROPHILS % 59.3 % (38.7-80.0); PLATELET COUNT 276 x10e3/uL (140-360); RED BLOOD COUNT 3.29 x10e6/uL (4.3-5.7); RED CELL DISTRIBUTION WIDTH 21.7 % (11.7-14.4)
[2018-11-08 05:53] LABS: ALBUMIN 1.8 g/dL (3.5-5.0); ALBUMIN/GLOBULIN RATIO 0.3 (0.8-2.0); ANION GAP 11.2 mmol/L (8-16); BILIRUBIN,DIRECT 2.7 mg/dL (0.0-0.5); CALCIUM 7.9 mg/dL (8.4-10.2); CREATININE, SERUM 1.4 mg/dL (0.72-1.25); POTASSIUM 4.2 mmol/L (3.5-5.1)
[2018-11-08 05:56] LABS: B-TYPE NATRIURETIC PEPTIDE2 640.1 pg/mL (0-100)
[2018-11-08] MEDS: PIPERACILLIN/TAZO 2.25 GM 50 ML IV SCH ×3 (05:56→22:06)
--- NOTE | 2018-11-08 06:22 | NUR ---
Paged Dr. García to inform about vancomycin trough, left voice massages. Waiting for MD's call back.
--- NOTE | 2018-11-08 06:40 | NUR ---
Paged Dr. Castellano to inform about vancomycin trough, left voice massages. Waiting for MD's call.
[2018-11-08] MEDS: METOPROLOL TARTRATE 25 MG TAB PO SCH ×2 (08:16→16:16)
[2018-11-08] MEDS: PANTOPRAZOLE SOD 40 MG TABEC PO SCH (08:22)
[2018-11-08] MEDS: MAGNESIUM OXIDE 400 MG TAB PO SCH (08:22)
[2018-11-08] MEDS: FUROSEMIDE INJ 10 MG/ML 4 ML VIAL IV SCH (08:22)
[2018-11-08] MEDS: LORATADINE 10 MG TAB PO SCH (08:22)
[2018-11-08] MEDS ORDERED: LACTULOSE SYRUP 20 GM/30 ML UDC PO SCH (09:00)
--- NOTE | 2018-11-08 16:14 | Progress Note ---
DATE: Cardiology Progress Note SUBJECTIVE: Denies any chest pain or shortness of breath. Does continue to have dyspnea on exertion to moderate activity. Edema to lower extremities continues to improve. OBJECTIVE: VITAL SIGNS: Temperature 96.4, heart rate 114 on telemetry, however, currently at 80, sinus rhythm, blood pressure 149/77, respiratory rate 22, and O2 saturation 93%. BMI 33. GENERAL: No acute distress. Alert. NECK: No JVD. Upright head of bed elevation. No carotid bruit. CHEST: Clear to auscultation bilaterally. CARDIOVASCULAR: Regular rate and rhythm. Normal S1 and S2. No S3 or S4. ABDOMEN: Soft, distended. Bowel sounds positive. EXTREMITIES: 1+ edema. Left leg covered with wrappings. Erythema to lower extremities improving. CARDIOVASCULAR MEDICATIONS: Reviewed. 1. Furosemide 40 mg IV b.i.d. 2. Zosyn. 3. Vancomycin. 4. Metoprolol 25 mg b.i.d. 5. Magnesium oxide 400 mg daily. STUDIES: Reviewed. Sodium 133, potassium 4.2, chloride 102, bicarbonate 37, BUN is 32, creatinine 1.4, glucose 122. White blood cells 8.8, hemoglobin 9.6, and platelets 276. INR 1.1. AST 172, ALT 56, alkaline phosphatase 76, total bilirubin 3.5. ASSESSMENT: 1. Cellulitis. 2. Status post septic shock. 3. End-stage liver disease. 4. Status post acute kidney injury with improving creatinine. 5. Hyperkalemia, now improved. 6. Metabolic acidosis, now resolved. 7. Anemia. 8. Fecal occult blood test positive. 9. Liver mass. 10. Paroxysmal atrial fibrillation. 11. Acute on chronic diastolic heart failure. RECOMMENDATIONS: 1. Continue current cardiovascular medications with following switch furosemide to 40 mg IV once daily as patient has had issues with low blood pressure limiting beta logan use and volume status has improved. Continue IV once daily Lasix for now as the patient is approaching euvolemia burned out period. 2. Anticoagulation spicer, not a candidate currently given fecal occult blood test. Defer workup to GI. Julián Osorio MD AFImer/MODL /[id number]
[2018-11-08] MEDS: RIFAXIMIN 550 MG TABLET PO SCH (16:16)
[2018-11-08] MEDS: LACTULOSE SYRUP 20 GM/30 ML UDC PO SCH (16:16)
[2018-11-08] MEDS ORDERED: VANCOMYCIN 500MG/NS 0.9% 100ML 100 ML IV SCH (18:00)
[2018-11-09] MEDS: LEVALBUTEROL HCL SOLN NEBU 1.25 MG/3 ML NEB INH SCH ×3 (00:05→13:50)
[2018-11-09] MEDS ORDERED: FUROSEMIDE INJ 10 MG/ML 4 ML VIAL ONE (01:10)
[2018-11-09] MEDS ORDERED: FUROSEMIDE INJ 10 MG/ML 4 ML VIAL IV ONE (01:15)
--- NOTE | 2018-11-09 02:35 | Progress Note ---
DATE: SUBJECTIVE: Mr. Orozco is doing very well from GI standpoint. He is awake, alert, and oriented. Tolerating his diet well. Had several bowel movements. Hemodynamically, temperature 96, blood pressure 129/66, and pulse 96. No GI complaint. Still receiving antibiotics for his cellulitis. LABORATORY DATA: His recent lab tests, white cell count 8.8, hemoglobin 9.6, and hematocrit 27. Total bilirubin 2.7, alkaline phosphatase 76, AST 172, and ALT 56. PLAN: My plan is still the same as soon as the patient is clinically stable, that he can be discharged on oral antibiotics. I am referring him to the liver unit at [facility] for workup of the malignant appearance mass on his CT scan of the liver. The patient known to have cirrhosis. Olga Nuno MD RD/MODL /[id number]
[2018-11-09 04:30] VITALS: BP 126/58
[2018-11-09 05:08] LABS: BASOPHILS # (AUTO) 0.1 (0.0-0.1); BASOPHILS % 0.9 % (0.0-1.0); EOSINOPHILS # (AUTO) 0.2 (0.0-0.4); EOSINOPHILS % 2.3 % (0.0-6.0); HEMATOCRIT 27.7 % (38.2-49.6); HEMOGLOBIN 9.3 g/dL (14.0-18.0); LYMPHOCYTES # (AUTO) 1.4 (1.0-3.2); LYMPHOCYTES % 17.7 % (18.0-39.1); MEAN CORPUSCULAR HEMOGLOBIN 28.6 pg (28-32); MEAN CORPUSCULAR HGB CONC 33.6 g/dL (31-35); MEAN CORPUSCULAR VOLUME 85.2 fL (81-99); MONOCYTES # (AUTO) 1.2 (0.2-0.8); MONOCYTES % 15.8 % (4.4-11.3); NEUTROPHILS # (AUTO) 4.7 (2.1-6.9); NEUTROPHILS % 60.5 % (38.7-80.0); PLATELET COUNT 233 x10e3/uL (140-360); RED BLOOD COUNT 3.25 x10e6/uL (4.3-5.7); RED CELL DISTRIBUTION WIDTH 22.7 % (11.7-14.4)
[2018-11-09] MEDS: PIPERACILLIN/TAZO 2.25 GM 50 ML IV SCH ×2 (05:21→13:52)
[2018-11-09 05:43] LABS: ALBUMIN 1.8 g/dL (3.5-5.0); ALBUMIN/GLOBULIN RATIO 0.3 (0.8-2.0); ANION GAP 11.2 mmol/L (8-16); CREATININE, SERUM 1.4 mg/dL (0.72-1.25); POTASSIUM 4.2 mmol/L (3.5-5.1)
--- NOTE | 2018-11-09 05:48 | NUR ---
Patient assisted to changed dressing on his left lower leg, patient tolerated well. Will continue to monitor.
[2018-11-09 08:16] VITALS: BP 125/60
[2018-11-09] MEDS: PANTOPRAZOLE SOD 40 MG TABEC PO SCH (08:37)
[2018-11-09] MEDS: RIFAXIMIN 550 MG TABLET PO SCH ×2 (08:38→17:39)
[2018-11-09] MEDS: LORATADINE 10 MG TAB PO SCH ×2 (08:38→09:00)
[2018-11-09] MEDS: MAGNESIUM OXIDE 400 MG TAB PO SCH (08:38)
[2018-11-09] MEDS ORDERED: FUROSEMIDE INJ 10 MG/ML 4 ML VIAL IV SCH (09:00)
[2018-11-09] MEDS: LACTULOSE SYRUP 20 GM/30 ML UDC PO SCH ×2 (09:00→17:39)
[2018-11-09] MEDS: METOPROLOL TARTRATE 25 MG TAB PO SCH ×2 (09:00→17:56)
[2018-11-09 09:49] VITALS: BP 125/60
--- NOTE | 2018-11-09 10:24 | NUR ---
EDUCATED ABOUT IMM, SIGNED, FILED IN CHART, WITH COPY LEFT WITH FAMILY AT BEDSIDE.
[2018-11-09 10:45] LABS: CREATININE,URINE RANDOM 31.61 mg/dL (63-166)
[2018-11-09 10:46] LABS: TOTAL PROTEIN, URINE < 6.8 mg/dL (1-14)
[2018-11-09 11:08] LABS: EOSINOPHIL SMEAR,URINE PRESENT (NONE SEEN)
[2018-11-09] MEDS: ZINC OXIDE / BALSAM PERU 30 GM TUBE TOP SCH (11:22)
--- NOTE | 2018-11-09 12:37 | Progress Note ---
DATE: Cardiology Progress Note SUBJECTIVE: No complaints. OBJECTIVE: VITAL SIGNS: Temperature 98 degrees, heart rate 80, respiratory rate 18, blood pressure 126/58, O2 saturation 96% on 2 L/minutes nasal cannula. GENERAL: In no acute distress, alert. NECK: No JVD. CHEST: Clear to auscultation. CARDIOVASCULAR: Irregular rate and rhythm. Normal S1 and S2. ABDOMEN: Soft, distended. Bowel sounds positive. EXTREMITIES: 1+ edema. Erythema improving. CARDIOVASCULAR MEDICATIONS: Reviewed. Furosemide 40 mg IV daily, magnesium oxide 400 mg daily, Zosyn, vancomycin, metoprolol tartrate 25 mg b.i.d. STUDIES: White blood cell 7.7, hemoglobin 9.3, platelets 233. Sodium 131, potassium 4.2, chloride 98, bicarbonate 26, BUN 27, creatinine 1.4, glucose 128, calcium 8, total bilirubin 4, AST 181, ALT 56, alkaline phosphatase 81, total protein 7.4, albumin 1.8. ASSESSMENT: A 63-year-old man with severe sepsis and septic shock, now improved. 1. Cellulitis. 2. End-stage liver disease. 3. Status post acute kidney injury. 4. Status post hyperkalemia. 5. Status post metabolic acidosis. 6. Anemia with fecal occult blood test positive. 7. Liver mass. 8. Paroxysmal atrial fibrillation. 9. Acute on chronic diastolic heart failure. RECOMMENDATIONS: 1. Continue diuretics. Transition to oral 40 mg p.o. b.i.d. upon discharge. Can add spironolactone if potassium or creatinine allow. 2. Anticoagulation spicer, not currently a candidate for anticoagulation given fecal occult blood test and anemia. Defer timing for workup to GI. 3. Continue rate control with beta-logan. Julián Osorio MD AFImer/JUDY /[id number]
[2018-11-09 13:23] LABS: RBC MORPHOLOGY COMMENT NORMAL
[2018-11-09 13:24] LABS: ANISOCYTOSIS SLIGHT; HYPOCHROMASIA MODERATE; PLATELET ESTIMATE ADEQUATE; PLATELET MORPHOLOGY COMMENT NORMAL
[2018-11-09 13:30] VITALS: BP 117/64
[2018-11-09] MEDS ORDERED: PNEUMOCOCCAL VACCINE POLYVALENT 23 MCG/0.5 ML VIAL IM NR (14:45)
--- NOTE | 2018-11-09 15:30 | NUR ---
ORDERS FOR LTAC EVAL CHOICE LETTER SIGNED AND PLACED ON CHART COPY TO PT CALLED AND NOTIFIED EARL KIM OF CONSULT MOT SIGNED BY PT MOT PLACED IN PACKET AT DESK NURSE COURT HAS CALL IN TO DR Imer VO FOR DC ORDERS F/U CALL TO EARL JHAVERI LOVING AT 15:30; STILL NO AUTH FOR XFER; SHE HAS PLACED CALL TO DR Imer VO TO INQUIRE ABOUT LOS; NO RETURN CALL WILL TRANSFER TO LTAC WHEN BED SECURED AND TRANSFER ORDERS REC'D
[2018-11-09] MEDS ORDERED: CHLORASEPTIC SPRAY 177 ML BTL MM PRN (15:45)
--- NOTE | 2018-11-09 16:32 | NUR ---
REC'D AUTH FROM [facility] ROOM [address] DR Imer VO TO ATTEND [employer] MANAGER CALL REPORT TO [phone] GIVEN ROOM NUMBER AND NUMBER TO CALL REPORT NO DC ORDER YET COURT CALLED DR Imer VO AND NO RETURN CALL NOTIFIED CHARGE NURSE MERYL OF NO RETURN CALL FROM DR Imer VO
[2018-11-09 17:00] VITALS: BP 114/55
[2018-11-09] MEDS ORDERED: SPIRONOLACTONE 25 MG TAB PO SCH (17:00)
--- NOTE | 2018-11-09 17:52 | NUR ---
spoke to dr. wolff, notified him patient has a bed at [facility]. discharge order obtained, patient to be transferred with same meds and orders
[2018-11-09] MEDS ORDERED: PNEUMOCOCCAL VACCINE POLYVALENT 23 MCG/0.5 ML VIAL IM ONE (18:45)
--- NOTE | 2018-11-09 19:25 | NUR ---
Patient discharged to [facility], alert and oriented x3, discharge summary sent and transfer MAR sent with EMS. Pneumonia vaccine given to patient prior to discharge.
--- NOTE | 2018-11-10 02:21 | Progress Note ---
DATE: Mr. Orozco is doing fine today. He is still receiving his IV antibiotics. He is about to transfer to a rehab facility for his IV antibiotic. I spoke with him about his hepatitis C and liver lesion. I advised him as soon as he gets discharged from LTAC to come by my office, so we can rearrange his visit to the liver unit at [facility] for both, the treatment of hepatitis C and to manage his liver tumor, which most likely is a hepatocellular carcinoma. Olga Nuno MD RD/JUDY /[id number]
== END 2018-11-09 19:26 | DRG 871 ==
LOC: ER 12:57 → ERHOLD 18:56 → IMCU 20:51 → ICU 11-04 14:48 → IMCU 11-06 20:32
PROVIDERS: ADMIT Internal Medicine; ATTEND Internal Medicine
DX: A41.9 Sepsis, unspecified organism (principal); R65.21 Severe sepsis with septic shock; N17.0 Acute kidney failure with tubular necrosis; N18.6 End stage renal disease; E87.2 Acidosis; L03.115 Cellulitis of right lower limb; N17.9 Acute kidney failure, unspecified; I48.91 Unspecified atrial fibrillation; J44.9 Chronic obstructive pulmonary disease, unspecified; K74.60 Unspecified cirrhosis of liver; B19.20 Unspecified viral hepatitis C without hepatic coma; E88.09 Other disorders of plasma-protein metabolism, not elsewhere classified; E87.5 Hyperkalemia; I48.0 Paroxysmal atrial fibrillation; Z79.01 Long term (current) use of anticoagulants
CPT/HCPCS: 36415; 71045; 76700; 80053; 80061; 80202; 81001; 81015; 82140; 82248; 82270; 82550; 82553; 82570; 82728; 83540; 83690; 83735; 83880; 83930; 84100; 84156; 84165; 84466; 84484; 84550; 85025; 85610; 85730; 86021; 86160; 87040; 90732; 93005; 93306; 93970; 94640; 97139; 99284; J1940; J2543; J3370; J3475; J7040; J7050; P9047